=== PATIENT | female | born 1940 | race Caucasian/White ===

== ENCOUNTER → 2017-01-03 | Outpatient (CLI) | payer MEDICARE, MEDICAID ==
[~2017-01-03] MED LIST: ALEN70TA47 PO; BACL10TA PO; CARV12.53 PO; CLON0.5T3 PO; ESTR0.3T PO; EZET1TAB36 PO; GLIM1TAB PO; LEVO137T6 PO; LOSA-35 PO; MELO-195 PO; MEMA10TA PO; MTF500T PO; NF-ESOM40C PO; POTA10CA43 PO; QUET100T PO; SERT100T PO; SOLI5TAB4 PO; TRAM50TA2 PO; VITORIN
--- NOTE | 2017-01-03 14:25 | Diagnostic Imaging Report ---
EXAMINATION: Upper and lower extremity pressure measurements of ankle/brachial index and pulse volume recording at the ankle. INDICATION: Diabetes FINDINGS: The ankle/brachial index on the right side is 1.1, (1.1 PT, and 0.9 DP) and on the left is 1.1 (1.1 PT, and 0.9 DP). Pulse volume recording waveforms demonstrates minimal dampening of the waveforms more on the left side. IMPRESSION: Normal FRANCESCA, bilaterally. Dictated by: Dictated on workstation # [id number]
== END ==
LOC: RAD 08:55
PROVIDERS: ATTEND Internal Medicine
DX: E11.9 Type 2 diabetes mellitus without complications (principal); R09.89 Other specified symptoms and signs involving the circulatory and respiratory systems
CPT/HCPCS: 93922

== ENCOUNTER 2019-01-25 12:47 | Emergency (ER) | payer MEDICARE, MEDICAID ==
[~2019-01-25] VITALS: Ht 157.5 cm; Wt 96.2 kg
--- NOTE | 2019-01-25 13:06 | ED Fall/Injury ---
General Stated Complaint: FALL Source: patient, EMS Exam Limitations: clinical condition (dementia) History of Present Illness Date Seen by Provider: Jan 25, 2019 Time Seen by Provider: 13:01 Initial Comments This 78-year-old white female presents after a fall that occurred at home shortly prior to presentation to the emergency department. The patient related that she had opened her refrigerator door when she lost her balance and fell backwards striking her occiput. Patient denied loss of consciousness with the fall. The patient denied neck pain, paresthesias, or weakness in her extremities. The patient denies other injury in her accident other than a contusion to both shoulders. The patient suffers from dementia and is on Namenda. The patient is complaining of dysuria and has been treated recently for urinary tract infection. She believes that the urinary tract infection is still present. Allergies and Home Medications Allergies Coded Allergies: Sulfa (Sulfonamide Antibiotics) (Unverified Allergy, Unknown, 09/27/13) levofloxacin (Unverified Allergy, Unknown, 09/27/13) Home Medications Alendronate Sodium 70 Mg Tablet, 70 MG PO WEEKLY ON SUNDAY, (Reported) Carvedilol 12.5 Mg Tablet, 12.5 MG PO BID, (Reported) Clonazepam 0.5 Mg Tablet, 0.5 MG PO TID, (Reported) Esomeprazole Mag Trihydrate 40 Mg Capsule.dr, 40 MG PO DAILY, (Reported) Estrogens Conjugated 0.3 Mg Tab, 0.3 MG PO DAILY, (Reported) Ezetimibe/Simvastatin 1 Tab Tablet, 1 TAB PO DAILY@1700, (Reported) Fluconazole 150 Mg Tablet, 150 MG PO ONCE Prescribed by: GLENN MONZON MD on 01/25/191548 Glimepiride 1 Mg Tablet, 1 MG PO DAILY, (Reported) Levothyroxine Sodium 137 Mcg Tablet, 137 MCG PO DAILY, (Reported) Meloxicam 15 Mg Tablet, 15 MG PO DAILY, (Reported) Memantine Hcl 10 Mg Tablet, 20 MG PO BID, (Reported) Nitrofurantoin Monohyd/M-Cryst 100 Mg Capsule, 1 TAB PO BID PRN Prescribed by: GLENN MONZON MD on 01/25/191548 Quetiapine Fumarate 100 Mg Tablet, 150 MG PO HS, (Reported) Sertraline Hcl 100 Mg Tablet, 300 MG PO DAILY, (Reported) Tramadol HCl 50 Mg Tablet, 100 MG PO Q6H PRN for PAIN-MODERATE Prescribed by: GLENN MONZON MD on 01/25/19 6179 Tramadol Hcl 50 Mg Tablet, 50 MG PO BID, (Reported) Patient Home Medication List Home Medication List Reviewed: Yes Review of Systems Review of Systems Constitutional: No chills, No dizziness, No fever, No weakness Eyes: Denies Blurred Vision, Denies Photophobia Ears, Nose, Mouth, Throat: denies ear pain, denies ear discharge Respiratory: No cough, No short of breath Cardiovascular: No chest pain, No palpitations Gastrointestinal: No abdominal pain, No diarrhea, No nausea, No vomiting Genitourinary: no symptoms reported Musculoskeletal: see HPI, joint pain (left shoulder) Skin: no symptoms reported, other (no abrasions or lacerations) Psychiatric/Neurological: No Symptoms Reported, Other (dementia) Past Rpgabjh-Gpnxcm-Nnmlfh Hx Past Med/Social Hx: Reviewed Nursing Past Med/Soc Hx Patient Social History Recent Foreign Travel: No Contact w/Someone Who Travel: No Immunizations Up To Date Date of Influenza Vaccine: May 11, 2011 Past Medical History Reproductive Disorders: No Abdominal Hernia Family Medical History Patient reports no known family medical history. Physical Exam Vital Signs Vital Signs - First Documented 01/25/19 01/25/19 12:49 14:49 Temp 100.2 Pulse 85 Resp 10 B/P (MAP) 131/76 (94) Pulse Ox 94 O2 Delivery Room Air O2 Flow Rate 2.00 Capillary Refill : Height, Weight, BMI Height: 5'2.00" Weight: 240lbs. 9.0oz. [id number]; BMI Method: General Appearance: WD/WN, no apparent distress HEENT: normal ENT inspection, other (there is no tenderness to palpation of the caput. The facial structures are stable and nontender.) Neck: non-tender, full range of motion, supple, normal inspection Cardiovascular: regular rate, rhythm, no murmur Respiratory: lungs clear, normal breath sounds Gastrointestinal: normal bowel sounds, non tender, soft Back: normal inspection, no CVA tenderness, no vertebral tenderness Extremities: other (there is tenderness to palpation of both shoulders. There is pain with active motion of both shoulders.) Neurologic/Psychiatric: no motor/sensory deficits, alert, normal mood/affect Skin: normal color, warm/dry; No ecchymosis; other (no abrasions) Diana Coma Score Best Eye Response: (4) Open Spontaneously Best Verbal Response: (5) Oriented Best Motor Response: (6) Obeys Commands Diana Total: 15 Progress/Results/Core Measures Results/Orders Lab Results Laboratory Tests Test 01/25/19 12:58 01/25/19 13:06 Range/Units White Blood Count 6.0 4.3-11.0 10^3/uL Red Blood Count 4.18 L 4.35-5.85 10^6/uL Hemoglobin 11.8 11.5-16.0 G/DL Hematocrit 36 35-52 % Mean Corpuscular Volume 85 80-99 FL Mean Corpuscular Hemoglobin 28 25-34 PG Mean Corpuscular Hemoglobin Concent 33 32-36 G/DL Red Cell Distribution Width 13.5 10.0-14.5 % Platelet Count 225 130-400 10^3/uL Mean Platelet Volume 9.9 7.4-10.4 FL Neutrophils (%) (Auto) 75 42-75 % Lymphocytes (%) (Auto) 14 12-44 % Monocytes (%) (Auto) 8 0-12 % Eosinophils (%) (Auto) 3 0-10 % Basophils (%) (Auto) 0 0-10 % Neutrophils # (Auto) 4.5 1.8-7.8 X 10^3 Lymphocytes # (Auto) 0.9 L 1.0-4.0 X 10^3 Monocytes # (Auto) 0.5 0.0-1.0 X 10^3 Eosinophils # (Auto) 0.2 0.0-0.3 10^3/uL Basophils # (Auto) 0.0 0.0-0.1 10^3/uL Sodium Level 131 L 135-145 MMOL/L Potassium Level 5.0 3.6-5.0 MMOL/L Chloride Level 91 L 98-107 MMOL/L Carbon Dioxide Level 24 21-32 MMOL/L Anion Gap 16 H 5-14 MMOL/L Blood Urea Nitrogen 32 H 7-18 MG/DL Creatinine 2.05 H 0.60-1.30 MG/DL Estimat Glomerular Filtration Rate 24 BUN/Creatinine Ratio 16 Glucose Level 72 70-105 MG/DL Lactic Acid Level 0.69 0.50-2.00 MMOL/L Calcium Level 9.7 8.5-10.1 MG/DL Corrected Calcium 9.4 8.5-10.1 MG/DL Total Bilirubin 0.4 0.1-1.0 MG/DL Aspartate Amino Transf (AST/SGOT) 43 H 5-34 U/L Alanine Aminotransferase (ALT/SGPT) 25 0-55 U/L Alkaline Phosphatase 98 40-136 U/L Total Protein 8.1 6.4-8.2 GM/DL Albumin 4.4 3.2-4.5 GM/DL Urine Color YELLOW Urine Clarity CLEAR Urine pH 7 5-9 Urine Specific [place] 1.010 L 1.016-1.022 Urine Protein NEGATIVE NEGATIVE Urine Glucose (UA) NEGATIVE NEGATIVE Urine Ketones NEGATIVE NEGATIVE Urine Nitrite NEGATIVE NEGATIVE Urine Bilirubin NEGATIVE NEGATIVE Urine Urobilinogen NORMAL NORMAL MG/DL Urine Leukocyte Esterase 1+ H NEGATIVE Urine RBC (Auto) NEGATIVE NEGATIVE Urine RBC NONE /HPF Urine WBC 5-10 H /HPF Urine Squamous Epithelial Cells 0-2 /HPF Urine Crystals NONE /LPF Urine Bacteria TRACE /HPF Urine Casts NONE /LPF Urine Mucus NEGATIVE /LPF Urine Culture Indicated CULTURE PENDING My Orders Orders - GLENN MONZON MD Ct Head/Cervical Spine Wo (01/25/19 12:58) Shoulder, Bilateral, 3 Views (01/25/19 13:11) Blood Culture (01/25/19 13:28) Urine Culture (01/25/19 13:28) Lactic Acid Analyzer (01/25/19 13:28) Cbc With Automated Diff (01/25/19 14:09) Comprehensive Metabolic Panel (01/25/19 14:09) Urinalysis (01/25/19 14:58) Tramadol Tablet (Ultram Tablet) (01/25/19 16:00) Nitrofurantoin Capsule,Macro (Macrobid C (01/25/19 16:00) Vital Signs/I&O 01/25/19 01/25/19 12:49 14:49 Temp 100.2 Pulse 85 Resp 10 B/P (MAP) 131/76 (94) Pulse Ox 94 94 O2 Delivery Room Air Nasal Cannula O2 Flow Rate 2.00 Progress Progress Note : Time: 15:32 Progress Note The patient's radiographic and laboratory evaluation demonstrated evidence of a urinary tract infection (1+ leukocytes). There was no evidence of acute trauma radiographically. Focused Exam Lactate Level 01/25/19 12:58: Lactic Acid Level 0.69 Lactic Acid Level Laboratory Tests Test 01/25/19 12:58 Lactic Acid Level 0.69 MMOL/L (0.50-2.00) Departure Impression Primary Impression: Fall Qualified Codes: W19.XXXA - Unspecified fall, initial encounter Additional Impressions: Closed head injury Qualified Codes: S09.90XA - Unspecified injury of head, initial encounter Urinary tract infection Qualified Codes: N30.00 - Acute cystitis without hematuria Disposition: HOME, SELF-CARE (ERASED) Condition: Improved Departure-Patient Inst. Decision time for Depature: 15:43 Referrals: PAULINE ARAMBULA MD (PCP/Family) Primary Care Physician Patient Instructions: Closed Head Injury Add. Discharge Instructions: Ultram, Macrobid, and Diflucan as prescribed. 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 Come back if any problem or question. Scripts Tramadol HCl (Ultram) 50 Mg Tablet 100 MG PO Q6H PRN for PAIN-MODERATE, #20 TAB Prov: GLENN MONZON MD 01/25/19 Fluconazole (Diflucan) 150 Mg Tablet 150 MG PO ONCE, #1 TAB Prov: GLENN MONZON MD 01/25/19 Nitrofurantoin Monohyd/M-Cryst (Macrobid 100 mg Capsule) 100 Mg Capsule 1 TAB PO BID PRN for 7 Days, CAP Prov: GLENN MONZON MD 01/25/19 GLENN MONZON MD Jan 25, 2019 13:06
--- NOTE | 2019-01-25 13:49 | Diagnostic Imaging Report ---
PROCEDURE: CT head and CT cervical spine without contrast. TECHNIQUE: Multiple contiguous axial images were obtained through the brain and cervical spine without the use of intravenous contrast. Sagittal and coronal reformations through the cervical spine were then performed. Auto Exposure Controls were utilized during the CT exam to meet ALARA standards for radiation dose reduction. INDICATION: Neck pain after fall. FINDINGS: There is mild prominence of the ventricles and sulci. Mild chronic microvascular ischemic disease. There is no hydrocephalus. There is no midline shift. There is no intracranial mass, hemorrhage or extra-axial fluid collection. Complete opacification of the right maxillary sinus with some hyperdense material. Remaining sinuses are clear. Mastoid air cells are clear. The alignment of the cervical spine is normal. The vertebral body heights are well-maintained. No fracture or traumatic subluxation. The odontoid is intact and the lateral mass is well aligned. Prevertebral soft tissues are within normal limits. There are mild degenerative changes. There is some post-facet arthropathy. IMPRESSION: 1. Atrophy and some chronic microvascular ischemic disease, however, no acute intracranial abnormality. 2. Complete opacification of the right maxillary sinus with some hyperdense material, possibly a fungal infection. Recommend clinical correlation. 3. Mild cervical spondylosis without acute fracture or or traumatic subluxation. Dictated by: Dictated on workstation # [id number]
[2019-01-25 14:15] LABS: BASOPHILS % (AUTO) 0 % (0-10); EOSINOPHILS # (AUTO) 0.2 10^3/uL (0.0-0.3); EOSINOPHILS % (AUTO) 3 % (0-10); HEMATOCRIT 36 % (35-52); HEMOGLOBIN 11.8 G/DL (11.5-16.0); LYMPHOCYTES # (AUTO) 0.9 X 10^3 (1.0-4.0); LYMPHOCYTES % (AUTO) 14 % (12-44); MEAN CORPUSCULAR HEMOGLOBIN 28 PG (25-34); MEAN CORPUSCULAR HGB CONC 33 G/DL (32-36); MEAN CORPUSCULAR VOLUME 85 FL (80-99); MEAN PLATELET VOLUME 9.9 FL (7.4-10.4); MONOCYTES # (AUTO) 0.5 X 10^3 (0.0-1.0); MONOCYTES % (AUTO) 8 % (0-12); NEUTROPHILS # (AUTO) 4.5 X 10^3 (1.8-7.8); NEUTROPHILS % (AUTO) 75 % (42-75); PLATELET COUNT 225 10^3/uL (130-400); RED CELL DISTRIBUTION WIDTH 13.5 % (10.0-14.5)
--- NOTE | 2019-01-25 14:18 | Diagnostic Imaging Report ---
Indication: Pain. Findings: Severe glenohumeral osteoarthritis bilaterally is present without fracture or dislocation. Impression: Severe bilateral shoulder arthritis, no acute finding apparent. Dictated by: Dictated on workstation # [id number]
[2019-01-25 14:29] LABS: ALBUMIN 4.4 GM/DL (3.2-4.5); BILIRUBIN,TOTAL 0.4 MG/DL (0.1-1.0); CALCIUM 9.7 MG/DL (8.5-10.1); CREATININE SERUM 2.05 MG/DL (0.60-1.30); TOTAL PROTEIN 8.1 GM/DL (6.4-8.2)
--- NOTE | 2019-01-25 14:49 | NUR ---
Pt's O2 sat dropped to 89 while sleeping. Pt placed on @ L NC. O2 97%.
[2019-01-25 15:23] LABS: BILIRUBIN,URINE NEGATIVE (NEGATIVE); COLOR,URINE YELLOW; GLUCOSE, URINE (UA) NEGATIVE (NEGATIVE); KETONES,URINE NEGATIVE (NEGATIVE); LEUKOCYTE ESTERASE ,URINE 1+ (NEGATIVE); NITRITE,URINE NEGATIVE (NEGATIVE); PH,URINE 7 (5-9); PROTEIN,URINE NEGATIVE (NEGATIVE); UROBILINOGEN,URINE NORMAL (NORMAL)
[2019-01-25 15:33] LABS: CLARITY,URINE CLEAR
[2019-01-25 15:34] LABS: BACTERIA,URINE TRACE /HPF; SQUAMOUS EPITHELIAL CELL,UR 0-2 /HPF
[2019-01-25] MEDS ORDERED: TRAM-42 PO (15:49)
[2019-01-25] MEDS ORDERED: NITR-65 PO (15:49)
[2019-01-25] MEDS ORDERED: FLUC150T PO (15:49)
[2019-01-25] MEDS ORDERED: NITROFURANTOIN 100 MG (MACROBID) CAPSULE PO ONE (16:00)
[2019-01-25 16:05] VITALS: BP 147/71
== END 2019-01-25 16:05 | disposition home or self-care (01) ==
LOC: EDUNIT# 12:47 → ER 12:48
DX: S09.90XA Unspecified injury of head, initial encounter (principal); N39.0 Urinary tract infection, site not specified; F03.90 Unspecified dementia, unspecified severity, without behavioral disturbance, psychotic disturbance, mood disturbance, and anxiety; R40.2142 Coma scale, eyes open, spontaneous, at arrival to emergency department; R40.2252 Coma scale, best verbal response, oriented, at arrival to emergency department; R40.2362 Coma scale, best motor response, obeys commands, at arrival to emergency department; Z88.2 Allergy status to sulfonamides; Z88.1 Allergy status to other antibiotic agents; W01.198A Fall on same level from slipping, tripping and stumbling with subsequent striking against other object, initial encounter; Y92.009 Unspecified place in unspecified non-institutional (private) residence as the place of occurrence of the external cause
CPT/HCPCS: 36415; 70450; 72125; 80053; 81000; 83605; 85025; 87040; 87077; 87088; 87186

== ENCOUNTER → 2019-02-21 | Outpatient (CLI) | payer MEDICARE, MEDICAID ==
[~2019-02-21] MED LIST changes: +FLUC150T PO; +NITR-65 PO; +TRAM-42 PO
--- NOTE | 2019-02-21 14:11 | Diagnostic Imaging Report ---
INDICATION: Sinusitis. TIME OF EXAM: 1:34 p.m. FINDINGS: The right maxillary sinus appears to be opacified. The left maxillary sinus is well aerated and without evidence of air-fluid level. No intraorbital gas is seen. The frontal sinus, ethmoid air cells, and sphenoid sinus appear to be clear. IMPRESSION: Right maxillary sinus opacification. Dictated by: Dictated on workstation # [id number]
== END ==
LOC: RAD 13:14
PROVIDERS: ATTEND Internal Medicine
DX: J32.9 Chronic sinusitis, unspecified (principal)
CPT/HCPCS: 70220

== ENCOUNTER → 2019-08-12 | Outpatient (CLI) | payer MEDICARE, MEDICAID ==
--- NOTE | 2019-08-12 15:11 | Diagnostic Imaging Report ---
EXAMINATION: Bilateral shoulders at 2:45 p.m. INDICATION: Shoulder pain. AP and transaxillary views of both shoulder joints were obtained. FINDINGS: There is no fracture, dislocation, or acute bony abnormality evident. As noted on the prior exam of 01/25/2019, there is fairly severe degenerative disease involving the glenohumeral joints bilaterally, particularly on the right. These degenerative changes do not appear to have progressed. There is moderate degenerative disease of the acromioclavicular joint on the left. This finding is similar to the prior exam as well. Also, as noted on the prior exam, there has been resection of the distal right clavicle. There is a prominent bony excrescence along the inferior aspect of the acromion on the right. This could narrow the outlet for the supraspinatus muscle. There is a similar finding associated with the left acromion. The soft tissues are unremarkable. IMPRESSION: 1. There is no evidence of an acute bony abnormality. 2. The degenerative disease involving the shoulder joints seen previously does not appear to have progressed significantly. 3. If there is clinical concern regarding an injury to the rotator cuff or labrum, then MRI would be recommended for further evaluation. Dictated by: Dictated on workstation # [id number]
== END ==
LOC: ORTHO 14:23
PROVIDERS: ATTEND Orthopaedic Surgery
DX: M75.122 Complete rotator cuff tear or rupture of left shoulder, not specified as traumatic (principal); M75.121 Complete rotator cuff tear or rupture of right shoulder, not specified as traumatic; M19.012 Primary osteoarthritis, left shoulder; M19.011 Primary osteoarthritis, right shoulder

== ENCOUNTER → 2019-10-06 | Outpatient (CLI) | payer MEDICARE, MEDICAID | LOC: ORTHO 10:36 | PROVIDERS: ATTEND Orthopaedic Surgery | DX: M75.122 Complete rotator cuff tear or rupture of left shoulder, not specified as traumatic (principal); M75.121 Complete rotator cuff tear or rupture of right shoulder, not specified as traumatic; M19.012 Primary osteoarthritis, left shoulder; M19.011 Primary osteoarthritis, right shoulder ==

== ENCOUNTER → 2019-11-08 | Outpatient (CLI) | payer MEDICARE, MEDICAID ==
--- NOTE | 2019-11-08 13:45 | Diagnostic Imaging Report ---
EXAMINATION: Right hip unilateral 2 or 3 views (w/pelvis when done) HISTORY: RIGHT HIP PAIN COMPARISON: None available. FINDINGS: No acute fracture is seen. Alignment is normal. There is moderate right and mild left hip joint osteoarthritis. There is moderate degenerative disc disease in the lumbar spine. IMPRESSION: 1. Moderate right and mild left hip joint osteoarthritis. 2. No acute fracture is seen. Dictated by: Dictated on workstation # [id number]
== END ==
LOC: RAD 11:42
PROVIDERS: ATTEND Orthopaedic Surgery
DX: M16.0 Bilateral primary osteoarthritis of hip (principal)

== ENCOUNTER → 2019-11-12 | Outpatient (CLI) | payer MEDICARE, MEDICAID | LOC: ORTHO 10:48 | PROVIDERS: ATTEND Orthopaedic Surgery | DX: M16.0 Bilateral primary osteoarthritis of hip (principal); M25.511 Pain in right shoulder ==

== ENCOUNTER → 2020-01-07 | Outpatient (CLI) | payer MEDICARE, MEDICAID | LOC: ORTHO 10:51 | PROVIDERS: ATTEND Orthopaedic Surgery | DX: M12.811 Other specific arthropathies, not elsewhere classified, right shoulder (principal) ==

== ENCOUNTER 2021-01-25 07:46 | Observation (INO) | payer MEDICARE, MEDICAID ==
[~2021-01-25] VITALS: Ht 157 cm; Wt 86.5 kg
[2021-01-25 07:54] VITALS: BP 152/101
[2021-01-25] MEDS ORDERED: DEXTROSE 50% 50 ML (IMS) SYR ONE (08:01)
[2021-01-25 08:09] LABS: BASOPHILS % (AUTO) 0 % (0-10); EOSINOPHILS # (AUTO) 0.1 10^3/uL (0.0-0.3); EOSINOPHILS % (AUTO) 1 % (0-10); HEMATOCRIT 34 % (35-52); HEMOGLOBIN 10.7 g/dL (11.5-16.0); LYMPHOCYTES # (AUTO) 0.9 10^3/uL (1.0-4.0); LYMPHOCYTES % (AUTO) 13 % (12-44); MEAN CORPUSCULAR HEMOGLOBIN 29 pg (25-34); MEAN CORPUSCULAR HGB CONC 32 g/dL (32-36); MEAN CORPUSCULAR VOLUME 92 fL (80-99); MEAN PLATELET VOLUME 9.2 fL (9.0-12.2); MONOCYTES # (AUTO) 0.5 10^3/uL (0.0-1.0); MONOCYTES % (AUTO) 6 % (0-12); NEUTROPHILS # (AUTO) 5.8 10^3/uL (1.8-7.8); NEUTROPHILS % (AUTO) 79 % (42-75); PLATELET COUNT 225 10^3/uL (130-400); WHITE BLOOD COUNT 7.3 10^3/uL (4.3-11.0)
--- NOTE | 2021-01-25 08:09 | ED Neurological Problem ---
General Chief Complaint: Neuro-Stroke Like Symptoms Stated Complaint: POSSIBLE STROKE LIKE SYMPTOMS, HTN Source: patient, EMS Exam Limitations: clinical condition History of Present Illness Date Seen by Provider: Jan 25, 2021 Time Seen by Provider: 07:46 Initial Comments Patient to the ER by EMS from home with chief complaint of altered mental status. Family checked on her noticed yesterday she was having some right-sided facial droop that resolved spontaneously. They also found her today to be shaking a lot which the patient says she normally shakes. She had some altered mental status according to family and EMS. They noted her blood sugar to be 65 and so they gave her a 15 g tube of oral glucose which she said improved her symptoms. Patient is denying any chest pain shortness of air cough fevers chills nausea or vomiting. She is not having any dysuria. She is however endorsing some low back pain and right shoulder pain which is chronic and she uses tramadol and Tylenol for. She has had a dose today as well she says she ate oatmeal for breakfast. She says she had a fall yesterday and struck her head. She denies being on a blood thinner. She is not on insulin. She is a patient of Dr. George'qasim with known diabetes and denies any heart history. She has a skin tear laceration from blunt trauma to her right rivera from her fall yesterday which she has been doctoring with triple antibiotic ointment and gauze. Allergies and Home Medications Allergies Coded Allergies: Sulfa (Sulfonamide Antibiotics) (Unverified Allergy, Unknown, 09/27/13) levofloxacin (Unverified Allergy, Unknown, 09/27/13) Home Medications Acetaminophen 650 Mg Tablet.er, 650 MG PO QID PRN for PAIN-MILD (1-4), (Reported) ALTERNATES TYLENOL AND TRAMADOL Last Action: Held Acetaminophen/Diphenhydramine 1 Each Tablet, 2 EACH PO HS, (Reported) Last Action: Held Allopurinol 100 Mg Tablet, 100 MG PO DAILY, (Reported) Last Action: Continued Aspirin 81 Mg Tablet.dr, 81 MG PO DAILY, (Reported) Last Action: Continued Atorvastatin Calcium 10 Mg Tablet, 10 MG PO DAILY, (Reported) Last Action: Continued Baclofen 10 Mg Tablet, 10 MG PO 0800,1400,1600,2200, (Reported) Last Action: Continued Bumetanide 2 Mg Tablet, 2 MG PO DAILY, (Reported) Last Action: Held Carvedilol 6.25 Mg Tablet, 6.25 MG PO BID, (Reported) Last Action: Continued Cephalexin 500 Mg Capsule, 500 MG PO QID, (Reported) FILLED 01-19-2021 #40/10 DAY SUPPLY Last Action: Held Cholecalciferol (Vitamin D3) 50 Mcg Capsule, 50 MCG PO DAILY, (Reported) Last Action: Held Clonazepam 1 Mg Tablet, 1 MG PO 0800,1400,2200, (Reported) Last Action: Continued Donepezil HCl 10 Mg Tablet, 10 MG PO HS, (Reported) Last Action: Continued Ezetimibe 10 Mg Tablet, 10 MG PO DAILY, (Reported) Last Action: Continued Fluconazole 150 Mg Tablet, 150 MG PO DAILY, (Reported) FILLED 01-19-2021 #14/14 DAY SUPPLY Last Action: Continued Glimepiride 1 Mg Tablet, 1 MG PO 1800 W/MEAL, (Reported) Last Action: Held Glimepiride 1 Mg Tablet, 2 MG PO DAILY, (Reported) TAKES 2 (1MG) TABS Last Action: Held Levothyroxine Sodium 175 Mcg Tablet, 175 MCG PO DAILY, (Reported) Last Action: Converted Linagliptin 5 Mg Tablet, 5 MG PO DAILY, (Reported) Last Action: Continued Melatonin 3 Mg Tablet, 3 MG PO HS, (Reported) Last Action: Continued Memantine HCl 10 Mg Tablet, 10 MG PO 0800,1700, (Reported) Last Action: Continued Pantoprazole Sodium 40 Mg Tablet.dr, 40 MG PO DAILY, (Reported) Last Action: Continued Pilocarpine 5 Mg Tab, 5 MG PO QID, (Reported) Last Action: Converted Quetiapine Fumarate 50 Mg Tablet, 150 MG PO HS, (Reported) TAKES 3 (50MG) TABS Last Action: Converted Sertraline HCl 100 Mg Tablet, 200 MG PO DAILY, (Reported) TAKES 2 (100MG) TABS Last Action: Continued Simethicone 125 Mg Tab.chew, 125-250 MG PO TID PRN for GAS, (Reported) Last Action: Held Tramadol HCl 50 Mg Tablet, 50 MG PO QID, (Reported) ALTERNATES TYLENOL AND TRAMADOL Last Action: Continued Vit A/Vit C/Vit E/Zinc/Copper 1 Each Tablet, 1 EACH PO DAILY, (Reported) Last Action: Held Vitamin B Complex/Folic Acid 50 Mcg Tablet, 50 MCG PO DAILY, (Reported) Last Action: Held Patient Home Medication List Home Medication List Reviewed: Yes Review of Systems Review of Systems Constitutional: No chills, No fever Eyes: Denies Blindness, Denies Blurred Vision, Denies Drainage Ears, Nose, Mouth, Throat: denies ear pain, denies ear discharge Respiratory: No cough, No short of breath Cardiovascular: No chest pain, No edema Gastrointestinal: No abdominal pain, No constipation, No diarrhea Genitourinary: No dysuria, No pain : No Musculoskeletal: see HPI (Chronic back pain), back pain; No joint pain Psychiatric/Neurological: See HPI, Other (Laceration right anterior rivera) Endocrine: See HPI All Other Systems Reviewed Negative Unless Noted: Yes Past Cpgfjgb-Cekdti-Ldnmyd Hx Patient Social History Tobacco Use?: No Use of E-Cig and/or Vaping dev: No Substance use?: No Past Medical History Surgeries: Yes (HYSTERECTOMY, ROTATOR CUFF, CARPEL TUNNEL, TONSILS) Respiratory: Yes (wears cpap, O2 at night) Cardiac: Yes Neurological: Yes Reproductive Disorders: No Genitourinary: No Gastrointestinal: Yes Abdominal Hernia Musculoskeletal: Yes Endocrine: Yes Diabetes, Non-Insulin dep Psychosocial: Yes (BIPOLAR) Anxiety, Depression Integumentary: No Blood Disorders: No Family Medical History Patient reports no known family medical history. Physical Exam Vital Signs Vital Signs - First Documented 01/25/21 01/25/21 07:54 08:16 Temp 36.2 Pulse 86 Resp 20 B/P (MAP) 152/101 Pulse Ox 91 O2 Delivery Room Air Capillary Refill : Height, Weight, BMI Height: 5'2.00" Weight: 212lbs. 9.0oz. 96.282654ai; BMI Method:Stated General Appearance: WD/WN, moderate distress HEENT: PERRL/EOMI, pharynx normal Neck: full range of motion, normal inspection Respiratory: lungs clear, normal breath sounds, no respiratory distress, no accessory muscle use Cardiovascular: normal peripheral pulses, regular rate, rhythm (Mid 80s), no edema Peripheral Pulses: 2+ Radial Pulses (R), 2+ Radial Pulses (L) Gastrointestinal: normal bowel sounds, non tender, soft Extremities: normal range of motion, non-tender, normal inspection, normal capillary refill Neurologic/Psychiatric: no motor/sensory deficits, alert, other (Oriented to person and time but not place as she thinks she is in [email or web address]) [place] Nerves: normal hearing, normal speech, PERRL Coordination/Gait: normal finger to nose Motor/Sensory: no motor deficit, no sensory deficit, no pronator drift Skin: other (Jagged 10 cm irregular skin tear that does not look recent with a healing wound base and surrounding 2 cm of erythema but no induration or exudate over the right anterior lower leg.) Stroke NIH Stroke Scale Assessment Select: Initial Level of Consciousness: 0=Alert (0), Level of Consciousness- Questions: 0=Answers both month/age (0), LOC Commands: 0=Performs both tasks (0), Gaze: Normal (0), Visual Lowe: 0=No visual loss (0), Facial Movement (Facial Paresis): 0=Normal symmetrical mnt (0), Motor Function-Arms Right: 0=No drift (0), Motor Function-Arms Left: 0=No drift (0), Motor Function-Legs Right: 0=No drift (0), Motor Function-Legs Left: 0=No drift (0), Limb Ataxia: 0=Absent (0), Sensory: 0=Normal:no loss (0), Best Language: 0=No aphasia (0), Dysarthria: 0=Normal (0), Extinction & Inattention: 0=No abnormality (0), Total: 0 Stroke Thrombolytic Exclusion Age 18 or Over: Yes Acute intenal hemorrhage: No History of CVA: No Uncontrolled Coagulation Defec: No Intracranial Hemorrhage: No Severe Hypertension: No GI or Bleed: No Subarachnoid Hemorrhage: No Intracranial Neoplasm/Aneurysm: No Oral Anticoagulants: No Surgery or Trauma: No Puncture of Non-Compressible V: No Recent CPR: No Diabetic Hemorrhagic Retinopat: No Organ Biopsy: No Recent Obstetric Delivery: No Glucose: Yes (64) Significant Hepatic Dysfunctio: No NIH Stoke Scale >22: No Bacterial Endocarditis: No Pericarditis: No Improving Symptoms: Yes Platelets: No TPA Contraindication: No IV - TPa Received IV - TPa Procedure Performed?: No (Outside the window and improving symptoms with glucose) Progress/Results/Core Measures Results/Orders Lab Results Laboratory Tests Test 01/25/21 07:22 01/25/21 07:50 01/25/21 07:54 01/25/21 08:30 Range/Units White Blood Count 7.3 4.3-11.0 10^3/uL Red Blood Count 3.70 L 3.80-5.11 10^6/uL Hemoglobin 10.7 L 11.5-16.0 g/dL Hematocrit 34 L 35-52 % Mean Corpuscular Volume 92 80-99 fL Mean Corpuscular Hemoglobin 29 25-34 pg Mean Corpuscular Hemoglobin Concent 32 32-36 g/dL Red Cell Distribution Width 13.9 10.0-14.5 % Platelet Count 225 130-400 10^3/uL Mean Platelet Volume 9.2 9.0-12.2 fL Immature Granulocyte % (Auto) 1 % Neutrophils (%) (Auto) 79 H 42-75 % Lymphocytes (%) (Auto) 13 12-44 % Monocytes (%) (Auto) 6 0-12 % Eosinophils (%) (Auto) 1 0-10 % Basophils (%) (Auto) 0 0-10 % Neutrophils # (Auto) 5.8 1.8-7.8 10^3/uL Lymphocytes # (Auto) 0.9 L 1.0-4.0 10^3/uL Monocytes # (Auto) 0.5 0.0-1.0 10^3/uL Eosinophils # (Auto) 0.1 0.0-0.3 10^3/uL Basophils # (Auto) 0.0 0.0-0.1 10^3/uL Immature Granulocyte # (Auto) 0.1 0.0-0.1 10^3/uL Sodium Level 138 135-145 MMOL/L Potassium Level 4.3 3.6-5.0 MMOL/L Chloride Level 98 98-107 MMOL/L Carbon Dioxide Level 25 21-32 MMOL/L Anion Gap 15 H 5-14 MMOL/L Blood Urea Nitrogen 45 H 7-18 MG/DL Creatinine 2.25 H 0.60-1.30 MG/DL Estimat Glomerular Filtration Rate 21 BUN/Creatinine Ratio 20 Glucose Level 98 70-105 MG/DL Calcium Level 9.2 8.5-10.1 MG/DL Corrected Calcium 9.1 8.5-10.1 MG/DL Total Bilirubin 0.3 0.1-1.0 MG/DL Aspartate Amino Transf (AST/SGOT) 31 5-34 U/L Alanine Aminotransferase (ALT/SGPT) 18 0-55 U/L Alkaline Phosphatase 64 40-136 U/L C-Reactive Protein High Sensitivity 3.49 H 0.00-0.50 MG/DL Total Protein 7.6 6.4-8.2 GM/DL Albumin 4.1 3.2-4.5 GM/DL Serum Alcohol < 10 <10 MG/DL Glucometer 77 70-110 MG/DL Urine Color YELLOW Urine Clarity CLEAR Urine pH 5.5 5-9 Urine Specific [place] 1.010 L 1.016-1.022 Urine Protein NEGATIVE NEGATIVE Urine Glucose (UA) NEGATIVE NEGATIVE Urine Ketones NEGATIVE NEGATIVE Urine Nitrite NEGATIVE NEGATIVE Urine Bilirubin NEGATIVE NEGATIVE Urine Urobilinogen 0.2 < = 1.0 MG/DL Urine Leukocyte Esterase NEGATIVE NEGATIVE Urine RBC (Auto) NEGATIVE NEGATIVE Urine RBC NONE /HPF Urine WBC NONE /HPF Urine Squamous Epithelial Cells NONE /HPF Urine Crystals NONE /LPF Urine Bacteria NEGATIVE /HPF Urine Casts NONE /LPF Urine Mucus NEGATIVE /LPF Urine Culture Indicated NO Test 01/25/21 08:41 01/25/21 11:27 Range/Units Urine Opiates Screen NEGATIVE NEGATIVE Urine Oxycodone Screen NEGATIVE NEGATIVE Urine Methadone Screen NEGATIVE NEGATIVE Urine Propoxyphene Screen NEGATIVE NEGATIVE Urine Barbiturates Screen NEGATIVE NEGATIVE Ur Tricyclic Antidepressants Screen POSITIVE H NEGATIVE Urine Phencyclidine Screen NEGATIVE NEGATIVE Urine Amphetamines Screen NEGATIVE NEGATIVE Urine Methamphetamines Screen NEGATIVE NEGATIVE Urine Benzodiazepines Screen NEGATIVE NEGATIVE Urine Cocaine Screen NEGATIVE NEGATIVE Urine Cannabinoids Screen NEGATIVE NEGATIVE Glucometer 57 *L 70-110 MG/DL My Orders Orders - SHIVNAI MULLER Accucheck Stat ONCE (01/25/21 08:01) Ct Head/Cervical Spine Wo (01/25/21 08:01) Ed Iv/Invasive Line Start (01/25/21 08:01) D5 Ns 1000 Ml Iv Solution (Dextrose 5%/0 (01/25/21 08:15) Cbc With Automated Diff (01/25/21 08:01) Comprehensive Metabolic Panel (01/25/21 08:01) Hs C Reactive Protein (01/25/21 08:01) Ua Culture If Indicated (01/25/21 08:01) Catheter(Urinary) Insert & Ass 03,15 (01/25/21 08:01) Chest 1 View, Ap/Pa Only (01/25/21 08:01) D50w (Emergency) Syringe (Dextrose 50% 5 (01/25/21 08:01) Alcohol (01/25/21 08:29) Drug Screen Stat (Urine) (01/25/21 08:29) Ekg Tracing (01/25/21 07:55) D5 Ns 1000 Ml Iv Solution (Dextrose 5%/0 (01/25/21 12:06) D5 Ns 1000 Ml Iv Solution (Dextrose 5%/0 (01/25/21 12:15) Medications Given in ED Current Medications Medications Dose Ordered Sig/Grant Route Start Time Stop Time Status Last Admin Dose Admin Dextrose/Sodium Chloride 1,000 ml @ 0 mls/hr Q0M ONCE IV 01/25/21 08:15 01/25/21 08:16 DC 01/25/21 08:09 999 MLS/HR Vital Signs/I&O 01/25/21 01/25/21 07:54 08:16 Temp 36.2 Pulse 86 86 Resp 20 18 B/P (MAP) 152/101 152/101 (118) Pulse Ox 91 97 O2 Delivery Room Air Progress Progress Note : Time: 12:57 Progress Note Patient was given a bag of D5 followed by D5 at 100 an hour and will fed her some peanut butter and crackers as well as a meal to get her sugars to stay up. Plan to admit her for wound infection on Keflex and IV fluids. Initial ECG Impression Date: Jan 25, 2021 Initial ECG Impression Time: 07:55 Initial ECG Rate: 86 Initial ECG Rhythm: Normal Sinus Initial ECG Intervals: QT (494) Initial ECG Impression: Normal Comment Tremor artifact with a normal sinus rhythm in the mid 80s. Borderline prolonged QTC. Diagnostic Imaging Diagonstic Imaging: Xray Plain Films/CT/US/NM/MRI: chest Comments [facility]. [place], [place] NAME: TEEMICHAEL L MED REC#: [id number] PT STATUS: REG ER : 1940 PHYSICIAN: SHIVANI MULLER MD ADMIT DATE: 01/25/21/ER Signed Date of Exam:01/25/21 CHEST 1 VIEW, AP/PA ONLY EXAMINATION: Chest 1 view HISTORY: weak ams COMPARISON: 09/27/2013 FINDINGS: Heart size is upper limits of normal. Pulmonary vasculature are normal. Mild interstitial opacities lung bases. No pleural effusion or pneumothorax. Degenerative changes of the thoracic spine. Osseous structures are otherwise intact. Calcifications of the aorta. IMPRESSION: 1. Mild interstitial opacities in the lung bases which could represent atelectasis, pulmonary edema, or atypical infection. Dictated by: Dictated on workstation # [id number] Dict: 01/25/21 0951 Trans: 01/25/21 1004 [facility] [id number] Interpreted by: MARTHA MORELAND DO Electronically signed by: MARTHA MORELAND DO 01/25/21 1004 Reviewed: Reviewed by Ok Diagonstic Imaging: CT Plain Films/CT/US/NM/MRI: c-spine, head Comments [facility] [place] NAME: MICHAEL OLIVEIRA [facility] REC#: [id number] PT STATUS: REG ER : 1940 PHYSICIAN: SHIVANI MULLER MD ADMIT DATE: 01/25/21/ER Draft Date of Exam:01/25/21 CT HEAD/CERVICAL SPINE WO PROCEDURE: CT head and CT cervical spine without contrast. TECHNIQUE: Multiple contiguous axial images were obtained through the brain and cervical spine without the use of intravenous contrast. Sagittal and coronal reformations through the cervical spine were then performed. Auto Exposure Controls were utilized during the CT exam to meet ALARA standards for radiation dose reduction. INDICATION: Fall. Trauma. COMPARISON: 01/25/2019. FINDINGS: CT HEAD: The ventricles and cortical sulci are diffusely prominent, compatible with age-related volume loss. There are confluent areas of abnormal, low attenuation in the periventricular white matter. This is consistent with chronic small vessel ischemic changes. There is no midline shift or mass-effect. No acute intra-axial hemorrhage is seen. There are no abnormal areas of increased or decreased density to suggest acute hemorrhage or edema. No extra-axial masses or collections are present. The bony calvarium is intact. The visualized paranasal sinuses again show complete opacification of the right maxillary sinus as well as the right anterior ethmoid air cells. There is also partial opacification of the right frontal sinus. The mastoid air cells are clear. CT CERVICAL SPINE: Static alignment of the cervical spine is maintained. There is no evidence of jumped facets. Vertebral body heights are preserved. There is no acute fracture. No bony fragments are seen within the spinal canal. There are mild multilevel degenerative changes consisting of intervertebral disc height loss with anterior and posterior disc/osteophyte complex formations as well as multilevel facet arthropathy. Pre and paravertebral soft tissue structures are unremarkable. Note is made of calcified carotid atherosclerosis. Included portions of the lung apices are clear. IMPRESSION: 1. No acute intracranial abnormality. No CT evidence of mass, acute infarct, or intracranial hemorrhage. 2. Chronic small vessel ischemic changes in the deep white matter. 3. No acute fracture or dislocation in the cervical spine. Dictated on workstation # [id number] Dict: 01/25/21 0906 Trans: 01/25/2116 [id number] Interpreted by: SAMMY FIGUEROA MD Electronically signed by: Reviewed: Reviewed by Me Departure Communication (Admissions) Time/Spoke to Admitting Phy: 12:45 Discussed the case with Dr. Grullon and he agrees with admission on Keflex for wound infection, CAMPBELL on CKD and hyperglycemia to the floor. Impression Primary Impression: Hypoglycemia Additional Impressions: Wound infection Fall Qualified Codes: W19.XXXA - Unspecified fall, initial encounter Acute kidney injury superimposed on CKD Disposition: ADMITTED INPATIENT Condition: Stable Admissions Decision to Admit Reason: Admit from ER (General) Decision to Admit/Date: Jan 25, 2021 Time/Decision to Admit Time: 12:00 Departure-Patient Inst. Referrals: PAULINE GEORGE MD (PCP/Family) Primary Care Physician SHIVANI MULLER Jan 25, 2021 08:09
[2021-01-25 08:14] LABS: ALBUMIN 4.1 GM/DL (3.2-4.5); POTASSIUM 4.3 MMOL/L (3.6-5.0)
[2021-01-25 08:15] LABS: CALCIUM 9.2 MG/DL (8.5-10.1)
[2021-01-25] MEDS ORDERED: D5 NS 1000 ML IV SOLUTION 1,000 ML IV ONE ×2 (08:15→12:06)
[2021-01-25 08:17] LABS: TOTAL PROTEIN 7.6 GM/DL (6.4-8.2)
[2021-01-25 08:18] LABS: BILIRUBIN,TOTAL 0.3 MG/DL (0.1-1.0)
[2021-01-25 08:20] LABS: CREATININE SERUM 2.25 MG/DL (0.60-1.30)
[2021-01-25 08:46] LABS: BILIRUBIN,URINE NEGATIVE (NEGATIVE); CLARITY,URINE CLEAR; COLOR,URINE YELLOW; GLUCOSE, URINE (UA) NEGATIVE (NEGATIVE); KETONES,URINE NEGATIVE (NEGATIVE); LEUKOCYTE ESTERASE ,URINE NEGATIVE (NEGATIVE); NITRITE,URINE NEGATIVE (NEGATIVE); PH,URINE 5.5 (5-9); PROTEIN,URINE NEGATIVE (NEGATIVE)
[2021-01-25 08:51] LABS: BACTERIA,URINE NEGATIVE /HPF
[2021-01-25 09:01] LABS: AMPHETAMINE SCREEN, URINE NEGATIVE (NEGATIVE); BARBITURATE SCREEN URINE NEGATIVE (NEGATIVE); BENZODIAZEPINES SCREEN URINE NEGATIVE (NEGATIVE); CANNABINOID SCREEN, URINE NEGATIVE (NEGATIVE); COCAINE SCREEN URINE NEGATIVE (NEGATIVE); METHADONE STAT NEGATIVE (NEGATIVE); METHAMPHETAMINE SCREEN URINE S NEGATIVE (NEGATIVE); OPIATE SCREEN URINE NEGATIVE (NEGATIVE); OXYCODONE STAT NEGATIVE (NEGATIVE); PROPOXYPHENE STAT NEGATIVE (NEGATIVE); TRICYCLIC ANTIDEPRESSANTS SCRE POSITIVE (NEGATIVE)
--- NOTE | 2021-01-25 09:17 | Diagnostic Imaging Report ---
PROCEDURE: CT head and CT cervical spine without contrast. TECHNIQUE: Multiple contiguous axial images were obtained through the brain and cervical spine without the use of intravenous contrast. Sagittal and coronal reformations through the cervical spine were then performed. Auto Exposure Controls were utilized during the CT exam to meet ALARA standards for radiation dose reduction. INDICATION: Fall. Trauma. COMPARISON: 01/25/2019. FINDINGS: CT HEAD: The ventricles and cortical sulci are diffusely prominent, compatible with age-related volume loss. There are confluent areas of abnormal, low attenuation in the periventricular white matter. This is consistent with chronic small vessel ischemic changes. There is no midline shift or mass-effect. No acute intra-axial hemorrhage is seen. There are no abnormal areas of increased or decreased density to suggest acute hemorrhage or edema. No extra-axial masses or collections are present. The bony calvarium is intact. The visualized paranasal sinuses again show complete opacification of the right maxillary sinus as well as the right anterior ethmoid air cells. There is also partial opacification of the right frontal sinus. The mastoid air cells are clear. CT CERVICAL SPINE: Static alignment of the cervical spine is maintained. There is no evidence of jumped facets. Vertebral body heights are preserved. There is no acute fracture. No bony fragments are seen within the spinal canal. There are mild multilevel degenerative changes consisting of intervertebral disc height loss with anterior and posterior disc/osteophyte complex formations as well as multilevel facet arthropathy. Pre and paravertebral soft tissue structures are unremarkable. Note is made of calcified carotid atherosclerosis. Included portions of the lung apices are clear. IMPRESSION: 1. No acute intracranial abnormality. No CT evidence of mass, acute infarct, or intracranial hemorrhage. 2. Chronic small vessel ischemic changes in the deep white matter. 3. No acute fracture or dislocation in the cervical spine. Dictated by: Dictated on workstation # [id number]
--- NOTE | 2021-01-25 09:54 | Diagnostic Imaging Report ---
EXAMINATION: Chest 1 view HISTORY: weak ams COMPARISON: 09/27/2013 FINDINGS: Heart size is upper limits of normal. Pulmonary vasculature are normal. Mild interstitial opacities lung bases. No pleural effusion or pneumothorax. Degenerative changes of the thoracic spine. Osseous structures are otherwise intact. Calcifications of the aorta. IMPRESSION: 1. Mild interstitial opacities in the lung bases which could represent atelectasis, pulmonary edema, or atypical infection. Dictated by: Dictated on workstation # [id number]
[2021-01-25] MEDS ORDERED: POTASSIUM CHLORIDE INJ 20 MEQ in D5 NS 1000 ML IV SOLUTION 1,000 ML IV SCH (12:15)
[2021-01-25] MEDS ORDERED: D5 NS 1000 ML IV SOLUTION 1,000 ML IV SCH (12:15)
[2021-01-25] MEDS ORDERED: ONDANSETRON 4 MG/2 ML (SDV) Z0FRAN IVP PRN (14:15)
[2021-01-25] MEDS ORDERED: D5 NS W/KCL 20 MEQ/L 1,000 ML IV SCH (14:15)
[2021-01-25] MEDS ORDERED: PATIENT'S OWN MED (RX USE ONLY) TP PRN (14:15)
[2021-01-25] MEDS ORDERED: ACETAMINOPHEN 325 MG TABLET PO PRN (14:15)
[2021-01-25] MEDS ORDERED: ALLO100T PO (15:37)
[2021-01-25] MEDS ORDERED: CHOL200074 PO (15:37)
[2021-01-25] MEDS ORDERED: FLUC150T2 PO (15:37)
[2021-01-25] MEDS ORDERED: MELA3TAB39 PO (15:37)
[2021-01-25] MEDS ORDERED: CEPH500C PO (15:37)
[2021-01-25] MEDS ORDERED: MEMA10TA57 PO (15:37)
[2021-01-25] MEDS ORDERED: VITA50TA PO (15:37)
[2021-01-25] MEDS ORDERED: SIME125T59 PO (15:37)
[2021-01-25] MEDS ORDERED: NF-PILO5T PO (15:37)
[2021-01-25] MEDS ORDERED: LEVO175T5 PO (15:37)
[2021-01-25] MEDS ORDERED: CLON1TAB13 PO (15:37)
[2021-01-25] MEDS ORDERED: SERT-414 PO (15:37)
[2021-01-25] MEDS ORDERED: GLIM1TAB4 PO ×2 (15:37)
[2021-01-25] MEDS ORDERED: TRAM50TA3 PO (15:37)
[2021-01-25] MEDS ORDERED: QUET50TA22 PO (15:37)
[2021-01-25] MEDS ORDERED: CARV6.252 PO (15:37)
[2021-01-25] MEDS ORDERED: DONE10TA41 PO (15:37)
[2021-01-25] MEDS ORDERED: ACET-2840 PO (15:37)
[2021-01-25] MEDS ORDERED: BETA1TAB15 PO (15:37)
[2021-01-25] MEDS ORDERED: ATOR10TA66 PO (15:37)
[2021-01-25] MEDS ORDERED: [UNRECOGNIZED DRUG - CODE] PO (15:37)
[2021-01-25] MEDS ORDERED: PANT40TA52 PO (15:37)
[2021-01-25] MEDS ORDERED: ASPI-1238 PO (15:37)
[2021-01-25] MEDS ORDERED: EZET10TA49 PO (15:37)
[2021-01-25] MEDS ORDERED: BACL10TA PO (15:37)
[2021-01-25] MEDS ORDERED: BUME2TAB7 PO (15:37)
[2021-01-25] MEDS ORDERED: LINA5TAB PO (15:37)
[2021-01-25] MEDS ORDERED: ACET-3075 PO (15:42)
[2021-01-25 16:15] VITALS: BP 102/64
[2021-01-25] MEDS: inSUlin ASPART (NovoLOG) 1 UNIT/0.01 ML (CHARGE PER UNIT) SC SCH ×2 (16:30→20:33)
--- NOTE | 2021-01-25 16:42 | History & Physical-Hospitalist ---
LANIE KONG 01/25/21 1642: History of Present Illness HPI/Chief Complaint Franca Flowers is a 80y/o F who presents with AMS. History was given by daughter. The daughter reports pt had facial droop yesterday that resolved spontaneously. Then today the daughter was checking the video from the camera that is in the pt's house and had not seen her move by the camera in hours. Someone then went over to where the pt lives to check on her and found her sleeping in her chair which she never does according to the daughter. They also noticed that the pt's hands were shaking much more than her normal small tremor. Pt's blood glucose was then checked by the family and was low. They then gave her some oral glucose which caused the sxns to improve some but she was still not to baseline. At this point it was decided to have the pt brought into the emergency room. Has not had an episode like this in the past according to daughter. Pt does have a PMH of TIA. Laceration on right rivera from a fall she had last week when daughter was trying to load her into her van. Pt has a Daughter is unsure if pt has taken her meds today. Pt was evaluated for Parkinsons disease about 10 years ago and she was not diagnosed at that time daughter states. Source: family Date Seen 01/25/21 Time Seen by a Provider: 23:00 Attending Physician Jovany Reese MD PCP Elliot Arambula MD Referring Physician Date of Admission Jan 25, 2021 at 13:00 Home Medications & Allergies Home Medications Reviewed patient Home Medication Reconciliation performed by pharmacy medication reconciliations mathematical engineering technician and/or nursing. Patients Allergies have been reviewed. Allergies Allergies Coded Allergies Sulfa (Sulfonamide Antibiotics) (Unverified Allergy, Unknown, 09/27/13) levofloxacin (Unverified Allergy, Unknown, 09/27/13) Past Odgeypr-Kthaum-Dlxzxl Hx Patient Social History Tobacco Use?: No Smoking Status: Never a Smoker Use of E-Cig and/or Vaping dev: No Substance use?: No Alcohol Use?: No Pt feels they are or have been: No Immunizations Up To Date Date of Influenza Vaccine: May 11, 2011 First/Initial COVID19 Vaccinat: AUGUST 11 2020 Second COVID19 Vaccination Nicolas: SEPTEMBER 08, 2020 Tetanus Booster (TDap): Unknown Hepatitis A: No Hepatitis B: No Current Status status: No Advance Directives: No Communicates: Verbally Primary Language: Micronesian Preferred Spoken Language: Micronesian Is interpretation needed?: No Sensory deficits: Vision impairment Past Medical History Abdominal Hernia Diabetes, Non-Insulin dep Anxiety, Depression Blood Disorders: No Family Medical History Patient reports no known family medical history. Review of Systems Constitutional: No chills, No fever Respiratory: No cough, No short of breath Cardiovascular: No chest pain, No palpitations Gastrointestinal: No abdominal pain, No vomiting Musculoskeletal: back pain (chronic), joint pain (chronic b/l shoulder pain) Psychiatric/Neurological: Denies Headache; Tingling (occasional tingling in hands), Tremors Physical Exam Physical Exam Vital Signs Vital Signs - First Documented 01/25/21 01/25/21 07:54 08:16 Temp 36.2 Pulse 86 Resp 20 B/P (MAP) 152/101 Pulse Ox 91 O2 Delivery Room Air Capillary Refill : Less Than 3 Seconds Height, Weight, BMI Height: 5'2.00" Weight: 212lbs. 9.0oz. 96.553938lx; 35.09 BMI Method:Stated General Appearance: No Apparent Distress, WD/WN HEENT: Other (anisocoria L>R. EOMI) Respiratory: Lungs Clear, Normal Breath Sounds Cardiovascular: Regular Rate, Rhythm, No Murmur Gastrointestinal: Non Tender, Soft Extremity: Normal Inspection, No Pedal Edema Neurologic/Psychiatric: Alert, Oriented x3, Abnormal software quality assurance specialist II-XII (Unable to smile or puff out cheeks. ), Motor Weakness (b/l house parent strength 3/5), Other (Hand tremors that worsened w/ movement. Cogwheel rigidity present) Results Results/Procedures Labs Laboratory Tests 01/25/21 07:50 Patient resulted labs reviewed. Assessment/Plan Assessment and Plan Assessment hypoglycemia stroke-like sxns parkinson-like sxns HTN CKD hyperlipidemia lower lung atelectasis plan Start D5 NS w/ KCl. Stop glimepiride. Continue current monitoring. Will evaluate tomorrow and determine if ekg,echo, carotid US needed for further investigation of the stroke-like sxns. JOVANY REESE MD 01/26/21 0894: History of Present Illness Exam Limitations: clinical condition Time Seen by a Provider: 15:00 Past Phxogew-Nutbet-Vvwsmc Hx Past Medical History Dementia Renal Failure Diabetes, Non-Insulin dep Family Medical History Patient reports no known family medical history. No Pertinent Family Hx Physical Exam Physical Exam General Appearance: No Apparent Distress, Obese HEENT: Other (anisocoria L>R, nystagmus) Neck: Normal Inspection, Supple Respiratory: Lungs Clear, Normal Breath Sounds, No Respiratory Distress Cardiovascular: Regular Rate, Rhythm, No Murmur Gastrointestinal: Normal Bowel Sounds, Non Tender, Soft Extremity: Non Tender, Pedal Edema, Other (right leg lesion with bandage in place) Neurologic/Psychiatric: Alert, Oriented x3, Other (flat affect, mask like facies, dysmetria, intention tremor) Skin: Normal Color, Warm/Dry Lymphatic: No Adenopathy Results Results/Procedures Imaging: Reviewed Imaging Films, Reviewed Imaging Report Assessment/Plan Admission Diagnosis Stroke like symptoms Admission Status: Inpatient Order (span 2 midnights) Reason for Inpatient Admission: Further monitoring and evaluation Assessment and Plan Presented with stroke like symptoms, likely due to hypoglycemia, now resolved. Chronic symptoms consistent with Parkinsons. Continue to monitor symptoms and reevaluate as needed. Diagnosis/Problems Diagnosis/Problems (1) Stroke-like symptoms Status: Acute (2) Hypoglycemia due to type 2 diabetes mellitus Status: Acute (3) Parkinsonian features Status: Acute (4) Acute kidney injury superimposed on CKD Status: Acute (5) Wound infection Status: Acute (6) Fall Status: Acute Qualifiers: Encounter type: initial encounter Qualified Codes: W19.XXXA - Unspecified fall, initial encounter Supervisory-Addendum Brief Verification & Attestation Participated in pt care: history, MDM, physical Personally performed: exam, history, MDM, supervision of care Care discussed with: Medical Student Procedures: n/a Results interpretation: Verified all documentation A medical student performed and documented this service in my presence. I reviewed and verified all information documented by the medical student and made modifications to such information, when appropriate. I personally performed the physical exam and medical decision making. LANIE KONG Jan 25, 2021 16:42 JOVANY REESE MD Jan 26, 2021 16:57
[2021-01-25] MEDS: MEMANTINE 10 MG (NAMENDA) TABLET PO SCH (17:37)
[2021-01-25] MEDS: CEPHALEXIN 250 MG (KEFLEX) CAP PO SCH ×2 (17:37→20:56)
[2021-01-25 20:00] VITALS: BP 156/77
[2021-01-25] MEDS: LACTATED RINGERS 1,000 ML IV SCH (20:53)
[2021-01-25] MEDS: AtorvaSTATin TABLET 10 MG TABLET PO SCH (20:56)
[2021-01-25] MEDS: MELATONIN 3 MG TABLET PO SCH (20:56)
[2021-01-25] MEDS: DONEPEZIL 10 MG (ARICEPT) TAB PO SCH (20:56)
[2021-01-25] MEDS: QUEtiapine 100 MG (SEROquel) TAB IMMEDIATE RELEASE PO SCH (20:57)
[2021-01-25] MEDS ORDERED: PILOCARPINE 5 MG PO SCH (21:00)
[2021-01-25] MEDS: clonazePAM 1 MG (KlonoPIN) TAB PO SCH (21:00)
[2021-01-25] MEDS: BACLOFEN 10 MG (LIORESAL) TAB PO SCH (21:00)
[2021-01-26] VITALS: BP 154/71
[2021-01-26 04:00] VITALS: BP 177/71
[2021-01-26] MEDS: LEVOTHYROXINE 100 MCG (LEVOTHROID) TAB PO SCH (05:45)
[2021-01-26] MEDS: LEVOTHYROXINE 75 MCG (LEVOTHROID) TABLET PO SCH (05:45)
[2021-01-26 05:54] LABS: BASOPHILS # (AUTO) 0.1 10^3/uL (0.0-0.1); BASOPHILS % (AUTO) 1 % (0-10); EOSINOPHILS % (AUTO) 0 % (0-10); HEMATOCRIT 30 % (35-52); HEMOGLOBIN 9.5 g/dL (11.5-16.0); LYMPHOCYTES # (AUTO) 1.1 10^3/uL (1.0-4.0); LYMPHOCYTES % (AUTO) 12 % (12-44); MEAN CORPUSCULAR HEMOGLOBIN 29 pg (25-34); MEAN CORPUSCULAR HGB CONC 32 g/dL (32-36); MEAN CORPUSCULAR VOLUME 91 fL (80-99); MONOCYTES # (AUTO) 0.7 10^3/uL (0.0-1.0); MONOCYTES % (AUTO) 7 % (0-12); NEUTROPHILS # (AUTO) 7.4 10^3/uL (1.8-7.8); NEUTROPHILS % (AUTO) 79 % (42-75); PLATELET COUNT 216 10^3/uL (130-400); WHITE BLOOD COUNT 9.3 10^3/uL (4.3-11.0)
[2021-01-26 06:09] LABS: CALCIUM 8.5 MG/DL (8.5-10.1)
[2021-01-26] MEDS: inSUlin ASPART (NovoLOG) 1 UNIT/0.01 ML (CHARGE PER UNIT) SC SCH ×4 (06:11→21:06)
[2021-01-26 06:13] LABS: CREATININE SERUM 1.42 MG/DL (0.60-1.30)
--- NOTE | 2021-01-26 07:15 | Diagnostic Imaging Report ---
INDICATION: AMS. Weakness. COMPARISON: 11/25/2020. FINDINGS: Heart remains mildly enlarged. The lungs remain relatively well aerated. No infiltrates are demonstrated. No pulmonary edema. No pneumothorax or pleural effusion. IMPRESSION: Cardiomegaly with no acute changes noted. Dictated by: Dictated on workstation # [id number]
[2021-01-26 08:00] VITALS: BP 163/63
[2021-01-26] MEDS: eZETimibe 10 MG (ZETIA) TABLET PO SCH ×2 (08:03→10:29)
[2021-01-26] MEDS: BACLOFEN 10 MG (LIORESAL) TAB PO SCH ×5 (08:03→19:46)
[2021-01-26] MEDS: CEPHALEXIN 250 MG (KEFLEX) CAP PO SCH ×5 (08:03→19:45)
[2021-01-26] MEDS: clonazePAM 1 MG (KlonoPIN) TAB PO SCH ×4 (08:03→19:46)
[2021-01-26] MEDS: ALLOPURINOL 100 MG (ZYLOPRIM) TAB PO SCH ×2 (08:03→10:30)
[2021-01-26] MEDS: ASPIRIN E.C. 81 MG (ECOTRIN) TAB PO SCH ×2 (08:03→10:29)
[2021-01-26] MEDS: MEMANTINE 10 MG (NAMENDA) TABLET PO SCH ×3 (08:03→17:10)
[2021-01-26] MEDS: fluCOnazole (DIFLUCAN) 100 MG TAB PO SCH ×2 (08:04→10:28)
[2021-01-26] MEDS: PANTOPRAZOLE 40 MG (PROTONIX) TAB PO SCH ×2 (08:04→10:29)
[2021-01-26] MEDS: SERTRALINE 100 MG (ZOLOFT) TAB PO SCH ×2 (08:04→10:29)
[2021-01-26] MEDS: LACTATED RINGERS 1,000 ML IV SCH ×2 (08:20→22:57)
--- NOTE | 2021-01-26 09:35 | Physical Therapy Progress Note ---
Therapy Progress Note Spoke with Dr Grullon. Patient condition is declining with decreased cognition and physical function. More tests are being ordered to rule out CVA and other neuro diagnoses. Will check on status tomorrow and complete eval if patient able to tolerate. ALAN DUMONT PT Jan 26, 2021 09:35
[2021-01-26] MEDS ORDERED: LORazepam INJ 2 MG/ML (ATIVAN) VIAL IVP ONE (09:45)
[2021-01-26] MEDS: cefTRIAXone 2,000 MG/SWFI 20 ML IV PUSH IV SCH ×4 (10:58→21:27)
[2021-01-26] MEDS: AMPICILLIN IV SCH ×6 (11:10→22:46)
[2021-01-26] MEDS: [UNRECOGNIZED DRUG - OTHER] IV SCH ×6 (11:10→22:46)
[2021-01-26] MEDS: VANCOMYCIN 1,750 MG/NS 500 ML IVPB IV SCH ×2 (11:11)
--- NOTE | 2021-01-26 11:14 | Progress Note - Hospitalist ---
KAREL KONGIN 01/26/21 1114: Subjective HPI/CC On Admission Time Seen by Provider: 08:15 Franca Flowers is a 80y/o F who presents with AMS. History was given by daughter. The daughter reports pt had facial droop yesterday that resolved spontaneously. Then today the daughter was checking the video from the camera that is in the pt's house and had not seen her move by the camera in hours. Someone then went over to where the pt lives to check on her and found her sleeping in her chair which she never does according to the daughter. They also noticed that the pt's hands were shaking much more than her normal small tremor. Pt's blood glucose was then checked by the family and was low. They then gave her some oral glucose which caused the sxns to improve some but she was still not to baseline. At this point it was decided to have the pt brought into the emergency room. Has not had an episode like this in the past according to daughter. Pt does have a PMH of TIA. Laceration on right rivera from a fall she had last week when daughter was trying to load her into her van. Pt has a Daughter is unsure if pt has taken her meds today. Pt was evaluated for Parkinsons disease about 10 years ago and she was not diagnosed at that time daughter states. Subjective/Events-last exam Information given by daughter as pt did not respond back to me. She reports that pt is having issues swallowing her medications and water. Pt using her left arm for almost all movements and is holding her right arm across her chest. Having fevers according to the daughter. Tremors have not improved from when she was last seen. Review of Systems General: Other (fever) HEENT: Other (dysphagia) Unable to obtain any further ROS findings since pt was not talking and daughter only knew about the dysphagia and fever Objective Exam Vital Signs Vital Signs Date Time Temp Pulse Resp B/P (MAP) Pulse Ox O2 Delivery O2 Flow Rate FiO2 01/26/21 08:00 38.4 98 20 163/63 (96) 93 Room Air Capillary Refill : Less Than 3 Seconds General Appearance: WD/WN, Mild Distress HEENT: Photophobia (Pt would not open eyes but said she was trying. When manually opened she would try to shut them when light was shined into eyes) Neck: Other (nuchal rigidity ) Respiratory: Lungs Clear, Normal Breath Sounds Cardiovascular: No Murmur, Tachycardia Gastrointestinal: Non Tender, Soft Extremity: Swelling (rt leg larger than lf. No pitting edema), Other (laceration on rt leg. ) Neurologic/Psychiatric: Motor Weakness (mechanical manufacturing technician strength 1-2/5 b/l) Results/Procedures Lab Laboratory Tests 01/26/21 05:23 Patient resulted labs reviewed. Assessment/Plan Assessment and Plan Assess & Plan/Chief Complaint Assessment Meningitis-like sxns stroke-like sxns parkinson-like sxns HTN CKD hyperlipidemia lower lung atelectasis plan Head MRI ordered. LP and CSF panel ordered. Vancomycin, ceftriaxone, ampicillin, acyclovir, and dexamethasone started for empiric meningitis treatment. Continue monitoring JOVANY REESE MD 01/26/213: Subjective HPI/CC On Admission Date Seen by Provider: Jan 26, 2021 Time Seen by Provider: 09:25 Objective Exam General Appearance: No Apparent Distress, Obese HEENT: Photophobia (refusing to open eyes, resists attempts to open) Neck: Other (nuchal rigidity present) Respiratory: Lungs Clear, Normal Breath Sounds, No Respiratory Distress Cardiovascular: Regular Rate, Rhythm, No Murmur Gastrointestinal: Normal Bowel Sounds, Soft Extremity: Pedal Edema, Other (right leg laceration with bandage in place) Neurologic/Psychiatric: Alert (responds to some questions appropriately), Motor Weakness (lower extremity paralysis, upper extremity rigidity) Skin: Diaphoresis, Erythema (facial flushing, warm) Results/Procedures Imaging: Reviewed Imaging Films, Reviewed Imaging Report Assessment/Plan Assessment and Plan Assess & Plan/Chief Complaint Acute encephalopathy Hypoglycemia, resolved Possible meningitis Stroke like symptoms Sepsis CT Head negative Blood sugar low, now resolved Urine tox positive for TCAs Infectious workup negative UA negative CXR negative x2 Procal normal Obtain blood cultures and lactic acid Obtain lumbar puncture Obtain MRI Brain Giving Decadron Begin Vancomycin, Rocephin, Ampicillin, Acyclovir for empiric meningitis treatment CAMPBELL on CKD 3b Fluids, improving Hypothyroidism Check TSH Parkonsonian features Dementia Likely Parkinsons disease DVT prophylaxis: Lovenox Diagnosis/Problems Diagnosis/Problems (1) Stroke-like symptoms Status: Acute (2) Hypoglycemia due to type 2 diabetes mellitus Status: Acute (3) Acute kidney injury superimposed on CKD Status: Acute (4) Parkinsonian features Status: Acute (5) Wound infection Status: Acute (6) Fall Status: Acute Qualifiers: Qualified Codes: W19.XXXA - Unspecified fall, initial encounter (7) Sepsis Supervisory-Addendum Brief Verification & Attestation Participated in pt care: history, MDM, physical Personally performed: exam, history, MDM, supervision of care Care discussed with: Medical Student Procedures: n/a Results interpretation: Verified all documentation A medical student performed and documented this service in my presence. I reviewed and verified all information documented by the medical student and made modifications to such information, when appropriate. I personally performed the physical exam and medical decision making. LANIE KONG Jan 26, 2021 11:14 JOVANY REESE MD Jan 26, 2021 17:13
[2021-01-26 12:00] VITALS: BP 166/69
--- NOTE | 2021-01-26 12:05 | Occ Therapy Progress Note ---
Therapy Progress Note OT evaluation received, chart reviewed. Pt. on hold for therapy per PT due to change in medical status and ongoing testing. Will monitor and evaluate in a.m. if pt. able. 1205 NOELLE STEVENS OT Jan 26, 2021 12:05
[2021-01-26] MEDS: LORazepam INJ 2 MG/ML (ATIVAN) VIAL IVP SCH ×2 (12:33→21:27)
[2021-01-26 13:34] LABS: CSF GLUCOSE 69 MG/DL (50-80)
--- NOTE | 2021-01-26 13:36 | Anesthesia-Procedure Note ---
Procedures/Interventions Procedure Start/Stop/Diagnosis Date of Procedure: Jan 26, 2021 Start Time: 12:45 Referring Physician: Yadi Preprocedural Diagnosis: Alt mental status, R/O Meningtitis Brief History Consulted by Dr. Grullon for LP on pt who came in for altered mental status and to R/O meningitis. Pt was awake and alert in room on arrival. Procedure explained to pt in detail and answered all questions. Pt agreed to LP and signed consent. With assistance from RN, pt was turned left lateral decubitus. Pt tolerated her side well during procedure. Betadine prep x3 to Lumbar spine. 5cc Lidocaine plain for skin. Intially attempted #22g pencil point without success under sterile technique. Changed to 20g provided in kit. Good CSF flow. Opening pressure 21cm H2O. 4 individual samples obtained and provided to RN to send to Lab. 2-3cc CSF in each specimen container. Band aid applied to needle location. Advised pt and RN to lay supine for 2 hours. No complaints VSS. Stop Time: 13:00 Postprocedural Diagnosis: Alt mental status, R/O Meningitis Lumbar Puncture Discussed Risk,Benefits: Yes Patient Consents: Yes Position: Lying, L3-4, Left Sterile Technique: Yes Spinal Needle Used: 20g Quinke 3 1/2ioctavioh GONZÁLEZ DACOSTA CRNA Jan 26, 2021 13:36
[2021-01-26 13:41] LABS: CSF TOTAL PROTEIN 46 MG/DL (15-40)
[2021-01-26 13:44] LABS: APPEARANCE,CSF CLEAR; COLOR,CSF COLORLESS; CSF TUBE NUMBER 4; RED BLOOD CELL,CSF 1 CELLS (0-0); WHITE BLOOD CELL,CSF 1 CELLS (0-5)
[2021-01-26] MEDS ORDERED: GADOBUTROL 10 MMOL/10 ML (GADAVIST) VIAL IV ONE (15:30)
[2021-01-26 16:00] VITALS: BP 195/87
--- NOTE | 2021-01-26 16:05 | Diagnostic Imaging Report ---
PROCEDURE: MR imaging of the brain with and without contrast. TECHNIQUE: Multiplanar, multisequence MR imaging of the brain was performed with and without contrast. DATE: January 26, 2021. COMPARISON: CT head and cervical spine January 25, 2021. HISTORY: 80-year-old female, altered mental status. FINDINGS: There is no restricted diffusion. There is no area of abnormal intracranial susceptibility. There is proportional prominence of the ventricles and CSF spaces consistent with mild to moderate cerebral volume loss. There is no abnormal extra axial fluid collection. There is no acute intracranial hemorrhage. There is no mass effect or midline shift. There are areas of T2 and FLAIR hyperintense signal in the periventricular and subcortical white matter most likely reflecting moderate findings of chronic small vessel ischemic disease. There is no identified abnormal intracranial enhancement. There is complete opacification of the right maxillary sinus and also in the right sphenoid sinus. There is near complete opacification of the right frontal sinus and opacification within right ethmoidal air cells. IMPRESSION: 1. No identified acute intracranial abnormality. 2. Mild to moderate cerebral volume loss with moderate findings of chronic small vessel ischemic disease. 3. Nonspecific paranasal sinus opacification. Recommend correlation for possible acute sinusitis. Dictated by: Dictated on workstation # [id number]
[2021-01-26] MEDS: ACYCLOVIR INJECTION 650 MG in NS (IVPB) 250 ML IV SCH (17:10)
[2021-01-26] MEDS: DONEPEZIL 10 MG (ARICEPT) TAB PO SCH (19:45)
[2021-01-26] MEDS: AtorvaSTATin TABLET 10 MG TABLET PO SCH (19:46)
[2021-01-26] MEDS: MELATONIN 3 MG TABLET PO SCH (19:46)
[2021-01-26] MEDS: QUEtiapine 100 MG (SEROquel) TAB IMMEDIATE RELEASE PO SCH (19:46)
[2021-01-26 19:52] VITALS: BP 181/63
[2021-01-26] MEDS: ENOXAPARIN 40 MG/0.4 ML (LOVENOX) SYR SC SCH (21:27)
[2021-01-27] VITALS (7 sets, daily range): BP systolic 167–186; BP diastolic 65–82
[2021-01-27] MEDS: inSUlin ASPART (NovoLOG) 1 UNIT/0.01 ML (CHARGE PER UNIT) SC SCH ×6 (00:25→21:34)
[2021-01-27] MEDS: LACTATED RINGERS 1,000 ML IV SCH (04:35)
[2021-01-27] MEDS: ACYCLOVIR INJECTION 650 MG in NS (IVPB) 250 ML IV SCH ×2 (04:36→16:04)
[2021-01-27] MEDS: [UNRECOGNIZED DRUG - OTHER] IV SCH ×4 (04:44→10:42)
[2021-01-27] MEDS: AMPICILLIN IV SCH ×4 (04:44→10:42)
[2021-01-27] MEDS: LEVOTHYROXINE 75 MCG (LEVOTHROID) TABLET PO SCH ×2 (05:29→12:15)
[2021-01-27] MEDS: LEVOTHYROXINE 100 MCG (LEVOTHROID) TAB PO SCH ×2 (05:29→12:15)
[2021-01-27 06:31] LABS: BASOPHILS % (AUTO) 0 % (0-10); EOSINOPHILS % (AUTO) 0 % (0-10); HEMATOCRIT 31 % (35-52); HEMOGLOBIN 9.7 g/dL (11.5-16.0); LYMPHOCYTES % (AUTO) 13 % (12-44); MEAN CORPUSCULAR HEMOGLOBIN 29 pg (25-34); MEAN CORPUSCULAR HGB CONC 32 g/dL (32-36); MEAN CORPUSCULAR VOLUME 92 fL (80-99); MEAN PLATELET VOLUME 9.4 fL (9.0-12.2); MONOCYTES # (AUTO) 0.5 10^3/uL (0.0-1.0); MONOCYTES % (AUTO) 7 % (0-12); NEUTROPHILS # (AUTO) 6.1 10^3/uL (1.8-7.8); NEUTROPHILS % (AUTO) 79 % (42-75); PLATELET COUNT 207 10^3/uL (130-400); WHITE BLOOD COUNT 7.6 10^3/uL (4.3-11.0)
[2021-01-27 06:40] LABS: POTASSIUM 3.7 MMOL/L (3.6-5.0)
[2021-01-27 06:41] LABS: CALCIUM 8.9 MG/DL (8.5-10.1)
[2021-01-27 06:45] LABS: CREATININE SERUM 1.34 MG/DL (0.60-1.30)
[2021-01-27] MEDS: MEMANTINE 10 MG (NAMENDA) TABLET PO SCH ×2 (08:12→17:02)
[2021-01-27] MEDS: BACLOFEN 10 MG (LIORESAL) TAB PO SCH ×4 (08:12→20:11)
[2021-01-27] MEDS: clonazePAM 1 MG (KlonoPIN) TAB PO SCH ×4 (08:12→20:12)
[2021-01-27] MEDS: PANTOPRAZOLE 40 MG (PROTONIX) TAB PO SCH ×2 (08:13→12:14)
[2021-01-27] MEDS: fluCOnazole (DIFLUCAN) 100 MG TAB PO SCH ×2 (08:13→12:13)
[2021-01-27] MEDS: ALLOPURINOL 100 MG (ZYLOPRIM) TAB PO SCH ×2 (08:14→12:14)
[2021-01-27] MEDS: SERTRALINE 100 MG (ZOLOFT) TAB PO SCH (08:14)
[2021-01-27] MEDS: eZETimibe 10 MG (ZETIA) TABLET PO SCH ×2 (08:14→12:14)
[2021-01-27] MEDS: cefTRIAXone 2,000 MG/SWFI 20 ML IV PUSH IV SCH ×2 (08:32)
[2021-01-27] MEDS: LORazepam INJ 2 MG/ML (ATIVAN) VIAL IVP SCH ×3 (08:32→20:10)
--- NOTE | 2021-01-27 09:50 | Physical Therapy Evaluation ---
PT Evaluation-General Medical Diagnosis Admission Date Jan 25, 2021 at 13:00 Medical Diagnosis: hypoglycemia/CAMPBELL/wound infection Onset Date: Jan 25, 2021 Therapy Diagnosis Therapy Diagnosis: generalized weakness/debility Height/Weight Height (Feet): 5 Height (Inches): 2.00 Weight (Pounds): 212 Weight (Ounces): 9.0 Precautions Precautions/Isolations: Fall Prevention, Standard Precautions Referral Physician: Yadi Reason for Referral: Evaluation/Treatment Medical History Pertinent Medical History: CAD, DM, HTN, Renal Insufficiency Current History EMS secondary to AMS Reviewed History: Yes Prior Prior Level of Function SCALE: Activities may be completed with or without assistive devices. 3-Xveeglgmnx-xiwrslo completes the activity by him/herself with no assistance from a helper. 5-Set-up or Clean-up Assistance-helper sets up or cleans up; patient completes activity. [place] assists only prior to or following the activity. 4-Supervision or Touching Assistance-helper provides verbal cues and/or touching/steadying and/or contact guard assistance as patient completes activity. Assistance may be provided throughout the activity or intermittently. 3-Partial/Moderate Assistance-helper does LESS THAN HALF the effort. [place] lifts, holds or supports trunk or limbs, but provides less than half the effort. 2-Substantial/Maximal Assistance-helper does MORE THAN HALF the effort. [place] lifts or holds trunk or limbs and provides more than half the effort. 6-Azaitajiy-pkbhfu does ALL the effort. Patient does none of the effort to complete the activity. Or, the assistance of 2 or more helpers is required for the patient to complete the activity. If activity was not attempted, code reason: 7-Patient Refused. 9-Not Applicable-not attempted and the patient did not perform the activity before the current illness, exacerbation or injury. 10-Not Attempted due to Environmental Limitations-(lack of equipment, weather restraints, etc.). 88-Not Attempted due to Medical Conditions or Safety Concerns. Bed Mobility: 5 Transfers (B,C,W/C): 5 Gait: 5 Indoor Mobility (Ambulation): Independent Stairs: Not Applicalbe PT Evaluation-Current Subjective Patient agrees to PT. Noted confusion. Objective Patient Orientation: Confused Attachments: Tatum Catheter, IV ROM/Strength ROM Lower Extremities bilateral LE WFL Strength Lower Extremities 3-/5 grossly bilateral LE ( no formal testing due to inability to follow direction) Integumentary/Posture Bladder Incontinence: Tatum Cath Neuromuscular (Tone, Coordination, Reflexes) noted tremors/severely diminished coordination with all mobility (difficulty with motor planning) Sensory Vision: Functional Hearing: Functional Transfers Roll Left to Right (QC): 1 Sit to Lying (QC): 1 Lying to Sitting/Side of Bed(Q: 1 Sit to Stand (QC): 1 Chair/Dng-wa-Mwuyb Xfer(QC): 88 Toilet Transfer (QC): 88 severely retropulsive and left lean with inability to correct with increase resistance with PT attempt to correct posture. Gait Does the Patient Walk?: No and Walking Goal IS indicated Distance: 3 side steps Gait Assistive Device: FWW Comments/Gait Description dependent assist to maintain erect posture/position Balance Sitting Static: Poor Sitting Dynamic: Poor Standing Static: Poor Standing Dynamic: Poor Picking up an Object (QC): 88 Assessment/Needs 80 y.o. female, will benefit from skilled PT to address functional strength and mobility to improve current LOF. Patient is severely debilitated with extreme retropulsion and left lean. Rehab Potential: Guarded PT Short Term Goals Short Term Goals Time Frame: Feb 09, 2021 Roll Left & Right: 3 Sit to lyin Lying to sitting on side of be: 3 Sit to stand: 3 Chair/dku-sy-bwueb transfer: 3 Toilet transfer: 3 Car transfer: 3 Walk 10 feet: 3 Walk 50 feet with two turns: 3 Walk 150 feet: 3 PT Lining Ironer Goals Lining Ironer Goals PT Senior Living Goals Time Frame: Feb 19, 2021 Roll Left & Right (QC): 4 Sit to Lying (QC): 4 Lying-Sitting on Side/Bed(QC): 4 Sit to Stand (QC): 4 Chair/Ojp-hq-Qvpip Xfer(QC): 4 Toilet Transfer (QC): 4 Does the Patient Walk: Yes Walk 10 feet (QC): 3 Walk 50ft with 2 Turns (QC): 3 Walk 150 ft (QC): 3 PT Plan Problem List Problem List: Activity Tolerance, Functional Strength, Safety, Balance, Gait, Transfer, Bed Mobility Treatment/Plan Treatment Plan: Continue Plan of Care Treatment Plan: Bed Mobility, Education, Functional Activity Stewart, Functional Strength, Gait, Safety, Therapeutic Exercise, Transfers Treatment Duration: Feb 19, 2021 Frequency: 6 times per week Estimated Hrs Per Day: .25 hour per day Time/GCodes Time In: 802 Time Out: 816 Total Billed Treatment Time: 14 [facility] GHULAM HAMM [facility] Jan 27, 2021 09:50
[2021-01-27] MEDS: VANCOMYCIN 1,750 MG/NS 500 ML IVPB IV SCH ×2 (10:42)
[2021-01-27] MEDS: hydrALAZINE (APESOLINE) 20 MG/ML VIAL IV PRN (10:43)
--- NOTE | 2021-01-27 10:55 | Progress Note - Hospitalist ---
LANIE KONG 01/27/21 1055: Subjective HPI/CC On Admission Time Seen by Provider: 08:21 Subjective/Events-last exam Pt states that she is doing fine. Able to talk and respond appropriately to questions. Says that she does not remember much of what happened yesterday. Hand tremors have improved slightly from yesterday. Review of Systems General: No Chills, No Other (fever) HEENT: No Head Aches Pulmonary: No Dyspnea, No Cough Cardiovascular: No: Chest Pain, Palpitations Gastrointestinal: No: Nausea, Vomiting Neurological: No: Numbness, Other (tingling ) Focused Exam Lactate Level 01/26/21 16:40: Lactic Acid Level 0.65 Objective Exam Vital Signs Vital Signs Date Time Temp Pulse Resp B/P (MAP) Pulse Ox O2 Delivery O2 Flow Rate FiO2 01/27/21 08:49 97 Room Air 01/27/21 08:00 36.5 100 18 185/82 (116) Capillary Refill : Less Than 3 Seconds General Appearance: No Apparent Distress, Obese HEENT: No Photophobia; Other (EOMI, anisocoria L>R) Neck: Full Range of Motion Respiratory: Chest Non Tender, Lungs Clear Cardiovascular: No Murmur, Tachycardia Gastrointestinal: Non Tender, Soft Extremity: Normal Inspection, No Pedal Edema Neurologic/Psychiatric: Alert, Other (delivery rn strength 4/5 b/l, hand tremor) Results/Procedures Lab Laboratory Tests 01/27/21 05:22 Patient resulted labs reviewed. Imaging: Reviewed Imaging Films, Reviewed Imaging Report Assessment/Plan Assessment and Plan Assess & Plan/Chief Complaint Assessment Acute encephalopathy Meningitis-like sxns stroke-like sxns parkinson-like sxns HTN CKD hyperlipidemia lower lung atelectasis plan Continue current medications and monitoring JOVANY REESE MD 01/27/21 1831: Subjective HPI/CC On Admission Date Seen by Provider: Jan 27, 2021 Assessment/Plan Assessment and Plan Assess & Plan/Chief Complaint Acute encephalopathy Stroke like symptoms Sepsis Acute bacterial sinusitis Bipolar disorder Unclear etiology CT Head negative Urine tox positive for TCAs Infectious workup negative UA negative CXR negative x2 Procal normal Blood cultures with no growth to date Lumbar puncture with no WBC elevation, CSF gram stain with rare WBC and no bacteria, CSF culture no growth to date MRI Brain negative for acute abnormalities Discontinue isolation Stop Vancomycin and Ampicillin Awaiting herpes viral culture Continue Acyclovir for empiric Herpes meningitis treatment Continue Rocephin for acute bacterial sinusitis CAMPBELL on CKD 3b Fluids, improving Hypothyroidism Euthyroid sick syndrome TSH low T3 and T4 normal Parkonsonian features Dementia Likely Parkinsons disease DVT prophylaxis: Lovenox Hypoglycemia, resolved Diagnosis/Problems Diagnosis/Problems (1) Acute encephalopathy Status: Acute (2) Rigidity Status: Acute (3) Anisocoria Status: Acute (4) Tremor Status: Acute (5) Stroke-like symptoms Status: Acute (6) Parkinsonian features Status: Acute (7) Acute kidney injury superimposed on CKD Status: Acute (8) Sepsis Status: Acute (9) Acute bacterial sinusitis Status: Acute Supervisory-Addendum Brief Verification & Attestation Participated in pt care: history, MDM, physical Personally performed: exam, history, MDM, supervision of care Care discussed with: Medical Student Procedures: n/a Results interpretation: Verified all documentation A medical student performed and documented this service in my presence. I reviewed and verified all information documented by the medical student and made modifications to such information, when appropriate. I personally performed the physical exam and medical decision making. LANIE KONG Jan 27, 2021 10:55 JOVANY REESE MD Jan 27, 2021 18:31
[2021-01-27 14:52] LABS: CREATINE KINASE 381 U/L (29-168)
--- NOTE | 2021-01-27 16:01 | Occupational Therapy Eval ---
OT Evaluation-General/PLF Medical Diagnosis Admission Date Jan 25, 2021 at 13:00 Medical Diagnosis: hypoglycemia/CAMPBELL/wound infection Onset Date: Jan 25, 2021 Therapy Diagnosis Therapy Diagnosis: Weakness, Decreased ADL skills Height/Weight Height (Feet): 5 Height (Inches): 2.00 Weight (Pounds): 212 Weight (Ounces): 9.0 Precautions Precautions/Isolations: Fall Prevention, Standard Precautions Weight Bear Status Weight Bearing Restriction: Weight Bearing/Tolerated Referral Physician: Yadi Referral Reason: Activity Tolerance, Self Care, Evaluation/Treatment, Strengthening/ROM Medical History Pertinent Medical History: CAD, DM, HTN, Renal Insufficiency Additional Medical History Carpal tunnel, TIA, Rotator cuff Current History Pt. brought to ER with AMS, right facial droop, decrease glucose. Pt. had spinal tap to rule out Meningitis. Test negative. Reviewed History: Yes Social History Pt. poor historian. She does state that she lives in [place], and that her daughters take care of her. ADL-Prior Level of Function SCALE: Activities may be completed with or without assistive devices. 7-Ktsvewsywn-rbjbjiq completes the activity by him/herself with no assistance from a helper. 5-Set-up or Clean-up Assistance-helper sets up or cleans up; patient completes activity. [place] assists only prior to or following the activity. 4-Supervision or Touching Assistance-helper provides verbal cues and/or touching/steadying and/or contact guard assistance as patient completes activity. Assistance may be provided throughout the activity or intermittently. 3-Partial/Moderate Assistance-helper does LESS THAN HALF the effort. [place] lifts, holds or supports trunk or limbs, but provides less than half the effort. 2-Substantial/Maximal Assistance-helper does MORE THAN HALF the effort. [place] lifts or holds trunk or limbs and provides more than half the effort. 9-Fbbgfntjy-yuyown does ALL the effort. Patient does none of the effort to complete the activity. Or, the assistance of 2 or more helpers is required for the patient to complete the activity. If activity was not attempted, code reason: 7-Patient Refused. 9-Not Applicable-not attempted and the patient did not perform the activity before the current illness, exacerbation or injury. 10-Not Attempted due to Environmental Limitations-(lack of equipment, weather restraints, etc.). 88-Not Attempted due to Medical Conditions or Safety Concerns. ADL PLOF Comments Pt. states that she lives alone, but then states that her daughters help her bathe and dress. When asked if she has difficulty doing this, she states, "no, they just love me." Pt. slightly confused. Self Care: Unknown Functional Cognition: Unknown OT Current Status Subjective Pt. does not state pain level. Appearance Pt. in bed. Agrees to work with OT. Mental Status/Objective Patient Orientation: Unable to Assess ADL-Treatment On/Off Footwear (QC): 2 Toileting Hygiene (QC): 1 (Catheter) Other Treatments Pt. in bed. She is pleasant and agrees to work with OT. Pt. poor historian. She is unable to state what she is able to do for herself, or why she is at the hospital. Pt. transfers supine-sit with max assist, as she states throughout treatment that she is "stuck." Once sitting on EOB, pt. agreed to stand with walker. Required mod assist. Pt. attempted to take steps away from bed. She was able to take 3 steps, and states that she is too weak. Pt. backs up and sits quickly on the bed. After resting, pt. stands again with walker and is able to take steps toward HOB and sits again. Pt. requires mod assist to transfer sit-supine. All needs met. Bed alarm set. Education OT Patient Education: Correct positioning, Modified ADL techniques, Progress toward Goal/Update tx plan, Purpose of tx/functional activities, Reviewed precautions, Rehab process, Transfer techniques Teaching Recipient: Patient Teaching Methods: Demonstration, Discussion Response to Teaching: Verbalize Understanding, Return Demonstration OT Short Term Goals Short Term Goals Time Frame: Feb 03, 2021 Eatin Oral hygiene: 4 Toileting hygiene: 3 Upper body dressin Lower body dressin Putting on/taking off footwear: 4 OT Donor Center Technician Goals Donor Center Technician Goals Time Frame: Feb 10, 2021 Eating (QC): 6 Oral Hygiene (QC): 5 Toileting Hygiene (QC): 4 Shower/Bathe Self (QC): 4 Upper Body Dressing (QC): 5 Lower Body Dressing (QC): 4 On/Off Footwear (QC): 4 Additional Goals: 1-Demonstrate ADL Tasks, 2-Verbalize Understanding, 3- ImproveStrength/Stewart 1=Demonstrate adherence to instructed precautions during ADL tasks. 2=Patient will verbalize/demonstrate understanding of assistive devices/modifications for ADL. 3=Patient will improve strength/tolerance for activity to enable patient to perform ADL's. OT Education/Plan Problem List/Assessment Assessment: Decreased Activ Tolerance, Decreased Safety Aware, Decreased UE Strength, Dependent Transfers, Impaired Bed Mobility, Impaired Cognition, Impaired Funct Balance, Impaired I ADL's, Impaired Self-Care Skills Discharge Recommendations Plan/Recommendations: Continue POC Therapy Discharge Recommendati: 24 Hour Supervision, Post Acute OT Treatment Plan/Plan of Care Treatment,Training & Education: Yes Patient would benefit from OT for education, treatment and training to promote independence in ADL's, mobility, safety and/or upper extremity function for ADL's. Plan of Care: ADL Retraining, Functional Mobility, UE Funct Exercise/Act Treatment Duration: Feb 10, 2021 Frequency: 5 times per week Estimated Hrs Per Day: .25 hour per day Agreement: Yes Rehab Potential: Fair Time/GCodes Start Time: 15:10 Stop Time: 15:25 Total Time Billed (hr/min): 15 Billed Treatment Time 1, NOELLE HOOD OT Jan 27, 2021 16:01
[2021-01-27] MEDS: AtorvaSTATin TABLET 10 MG TABLET PO SCH (20:10)
[2021-01-27] MEDS: ENOXAPARIN 40 MG/0.4 ML (LOVENOX) SYR SC SCH (20:10)
[2021-01-27] MEDS: DONEPEZIL 10 MG (ARICEPT) TAB PO SCH (20:10)
[2021-01-27] MEDS: QUEtiapine 100 MG (SEROquel) TAB IMMEDIATE RELEASE PO SCH (20:11)
[2021-01-27] MEDS: MELATONIN 3 MG TABLET PO SCH (20:13)
[2021-01-28] MEDS: LACTATED RINGERS 1,000 ML IV SCH (00:06)
[2021-01-28] MEDS: inSUlin ASPART (NovoLOG) 1 UNIT/0.01 ML (CHARGE PER UNIT) SC SCH ×6 (00:06→20:00)
[2021-01-28 03:01] VITALS: BP 174/74
[2021-01-28] MEDS: ACYCLOVIR INJECTION 650 MG in NS (IVPB) 250 ML IV SCH (05:04)
[2021-01-28] MEDS: LEVOTHYROXINE 100 MCG (LEVOTHROID) TAB PO SCH (05:35)
[2021-01-28] MEDS: LEVOTHYROXINE 75 MCG (LEVOTHROID) TABLET PO SCH (05:35)
--- NOTE | 2021-01-28 07:07 | Diagnostic Imaging Report ---
EXAMINATION: Chest 1 view HISTORY: Fever COMPARISON: 01/26/2021 FINDINGS: Heart size and pulmonary vasculature are stable. Mild interstitial opacities in the lung bases. No pleural effusion or pneumothorax. There are calcifications of the aorta. Degenerative changes of the thoracic spine. Osseous structures are otherwise intact. IMPRESSION: 1. Minimal interstitial opacities in the lung bases, not significantly changed from 01/26/2021. Findings could be seen with atelectasis although atypical infection or edema would be within the differential. Dictated by: Dictated on workstation # [id number]
[2021-01-28 07:45] VITALS: BP 187/77
[2021-01-28] MEDS: eZETimibe 10 MG (ZETIA) TABLET PO SCH (08:08)
[2021-01-28] MEDS: SERTRALINE 100 MG (ZOLOFT) TAB PO SCH (08:08)
[2021-01-28] MEDS: BACLOFEN 10 MG (LIORESAL) TAB PO SCH ×4 (08:08→22:39)
[2021-01-28] MEDS: PANTOPRAZOLE 40 MG (PROTONIX) TAB PO SCH (08:09)
[2021-01-28] MEDS: ALLOPURINOL 100 MG (ZYLOPRIM) TAB PO SCH (08:09)
[2021-01-28] MEDS: clonazePAM 1 MG (KlonoPIN) TAB PO SCH ×3 (08:09→22:39)
[2021-01-28] MEDS: MEMANTINE 10 MG (NAMENDA) TABLET PO SCH ×2 (08:09→17:23)
[2021-01-28] MEDS: fluCOnazole (DIFLUCAN) 100 MG TAB PO SCH (08:09)
[2021-01-28] MEDS: cefTRIAXone 2,000 MG in WATER (STERILE) FOR INJECTION 20 ML IV SCH (08:12)
[2021-01-28] MEDS: LORazepam INJ 2 MG/ML (ATIVAN) VIAL IVP SCH ×3 (08:13→20:11)
--- NOTE | 2021-01-28 09:30 | Physical Therapy Daily Note ---
PT Daily Note-Current Subjective Patient much more alert on this date and agrees to PT. Mental Status Patient Orientation: Person Attachments: Tatum Catheter, IV Transfers SCALE: Activities may be completed with or without assistive devices. 4-Hetatdjpue-sqcaczx completes the activity by him/herself with no assistance from a helper. 5-Set-up or Clean-up Assistance-helper sets up or cleans up; patient completes activity. [place] assists only prior to or following the activity. 4-Supervision or Touching Assistance-helper provides verbal cues and/or touching/steadying and/or contact guard assistance as patient completes activity. Assistance may be provided throughout the activity or intermittently. 3-Partial/Moderate Assistance-helper does LESS THAN HALF the effort. [place] lifts, holds or supports trunk or limbs, but provides less than half the effort. 2-Substantial/Maximal Assistance-helper does MORE THAN HALF the effort. [place] lifts or holds trunk or limbs and provides more than half the effort. 6-Zteiytkxr-coaiej does ALL the effort. Patient does none of the effort to complete the activity. Or, the assistance of 2 or more helpers is required for the patient to complete the activity. If activity was not attempted, code reason: 7-Patient Refused. 9-Not Applicable-not attempted and the patient did not perform the activity before the current illness, exacerbation or injury. 10-Not Attempted due to Environmental Limitations-(lack of equipment, weather restraints, etc.). 88-Not Attempted due to Medical Conditions or Safety Concerns. Lying to Sitting/Side of Bed(Q: 2 Sit to Stand (QC): 3 Chair/Btc-dw-Kysje Xfer(QC): 3 Gait Training Does the Patient Walk?: Yes Distance: 150' Walk 10 feet (QC): 3 Walk 50 ft with 2 Turns(QC): 3 Walk 150 ft (QC): 3 Gait Assistive Device: FWW slow, shuffle gait sequence/VC's for body placement in FWW Exercises Seated Therapy Exercises: Ankle pumps, Long arc quads Seated Reps: 15 Assessment Much improved on this date. Increase activity as tolerated by patient. PT Short Term Goals Short Term Goals Time Frame: Feb 09, 2021 Roll Left & Right: 3 Sit to lyin Lying to sitting on side of be: 3 Sit to stand: 3 Chair/lxd-oh-diqum transfer: 3 Toilet transfer: 3 Car transfer: 3 Walk 10 feet: 3 Walk 50 feet with two turns: 3 Walk 150 feet: 3 PT Group Home Goals Group Home Goals PT Group Home Goals Time Frame: Feb 19, 2021 Roll Left & Right (QC): 4 Sit to Lying (QC): 4 Lying-Sitting on Side/Bed(QC): 4 Sit to Stand (QC): 4 Chair/Kzz-na-Qvjea Xfer(QC): 4 Toilet Transfer (QC): 4 Does the Patient Walk: Yes Walk 10 feet (QC): 3 Walk 50ft with 2 Turns (QC): 3 Walk 150 ft (QC): 3 PT Plan Treatment/Plan Treatment Plan: Continue Plan of Care Treatment Plan: Bed Mobility, Education, Functional Activity Stewart, Functional Strength, Gait, Safety, Therapeutic Exercise, Transfers Treatment Duration: Feb 19, 2021 Frequency: 6 times per week Estimated Hrs Per Day: .25 hour per day Time/GCodes Time In: 905 Time Out: 918 Total Billed Treatment Time: 13 Total Billed Treatment 1 visit GT 13 min GHULAM HAMM PT Jan 28, 2021 09:30
[2021-01-28] MEDS ORDERED: TROUGH ORDER-PHARMACY XX NR (10:00)
[2021-01-28 10:39] LABS: BASOPHILS % (AUTO) 0 % (0-10); EOSINOPHILS # (AUTO) 0.1 10^3/uL (0.0-0.3); EOSINOPHILS % (AUTO) 1 % (0-10); HEMATOCRIT 29 % (35-52); HEMOGLOBIN 9.2 g/dL (11.5-16.0); LYMPHOCYTES # (AUTO) 1.3 10^3/uL (1.0-4.0); LYMPHOCYTES % (AUTO) 10 % (12-44); MEAN CORPUSCULAR HEMOGLOBIN 29 pg (25-34); MEAN CORPUSCULAR HGB CONC 31 g/dL (32-36); MEAN CORPUSCULAR VOLUME 93 fL (80-99); MEAN PLATELET VOLUME 8.7 fL (9.0-12.2); MONOCYTES % (AUTO) 7 % (0-12); NEUTROPHILS # (AUTO) 10.6 10^3/uL (1.8-7.8); NEUTROPHILS % (AUTO) 81 % (42-75); PLATELET COUNT 176 10^3/uL (130-400); WHITE BLOOD COUNT 13.1 10^3/uL (4.3-11.0)
[2021-01-28 10:53] LABS: ALBUMIN 3.3 GM/DL (3.2-4.5); POTASSIUM 3.8 MMOL/L (3.6-5.0)
[2021-01-28 10:54] LABS: CALCIUM 8.4 MG/DL (8.5-10.1)
[2021-01-28 10:57] LABS: BILIRUBIN,TOTAL 0.2 MG/DL (0.1-1.0)
[2021-01-28 10:59] LABS: CREATININE SERUM 1.43 MG/DL (0.60-1.30)
--- NOTE | 2021-01-28 11:36 | Occupational Ther Daily Note ---
OT Current Status-Daily Note Subjective Pt upright in recliner, agreeable to OT tx Mental Status/Objective Attachments: IV ADL-Treatment Therapy Code Descriptions/Definitions Functional [place] Measure: 0=Not Assessed/NA 4=Minimal Assistance 1=Total Assistance 5=Supervision or Setup 2=Maximal Assistance 6=Modified [place] 3=Moderate Assistance 7=Complete IndependenceSCALE: Activities may be completed with or without assistive devices. 9-Ndqtmlspwu-sgfzauy completes the activity by him/herself with no assistance from a helper. 5-Set-up or Clean-up Assistance-helper sets up or cleans up; patient completes activity. [place] assists only prior to or following the activity. 4-Supervision or Touching Assistance-helper provides verbal cues and/or touching/steadying and/or contact guard assistance as patient completes activity . Assistance may be provided throughout the activity or intermittently. 3-Partial/Moderate Assistance-helper does LESS THAN HALF the effort. [place] lifts, holds or supports trunk or limbs, but provides less than half the effort. 2-Substantial/Maximal Assistance-helper does MORE THAN HALF the effort. [place] lifts or holds trunk or limbs and provides more than half the effort. 6-Qgkjeieqg-uzthyx does ALL the effort. Patient does none of the effort to complete the activity. Or, the assistance of 2 or more helpers is required for the patient to complete the activity. If activity was not attempted, code reason: 7-Patient Refused. 9-Not Applicable-not attempted and the patient did not perform the activity before the current illness, exacerbation or injury. 10-Not Attempted due to Environmental Limitations-(lack of equipment, weather restraints, etc.). 88-Not Attempted due to Medical Conditions or Safety Concerns. Oral Hygiene (QC): 3 (Pt able to brush teeth, assist from OT to hold basin and wipe up spill.) Other Treatment Pt seated in recliner, initially declines OT as she is in the process of ordering lunch. OT assists pt with deciding what to have and with placing order. Pt then agreeable to ADL tx, she declines UE exercises due to arthritis. Pt completes oral care, OT held basin for pt and cleaned up spills, pt able to brush teeth and bring cup to mouth to rinse. Pt then washed her face with set up assistance. Min A with hair brushing, assist to brush back of hair. Post tx, pt seated in recliner, call light in reach and all needs met. Education OT Patient Education: Correct positioning, Modified ADL techniques, Progress toward Goal/Update tx plan, Purpose of tx/functional activities, Rehab process Teaching Recipient: Patient Teaching Methods: Discussion OT Short Term Goals Short Term Goals Time Frame: Feb 03, 2021 Eatin Oral hygiene: 4 Toileting hygiene: 3 Upper body dressin Lower body dressin Putting on/taking off footwear: 4 OT Care Home Goals Care Home Goals Time Frame: Feb 10, 2021 Eating (QC): 6 Oral Hygiene (QC): 5 Toileting Hygiene (QC): 4 Shower/Bathe Self (QC): 4 Upper Body Dressing (QC): 5 Lower Body Dressing (QC): 4 On/Off Footwear (QC): 4 Additional Goals: 1-Demonstrate ADL Tasks, 2-Verbalize Understanding, 3-ImproveStrength/Stewart 1=Demonstrate adherence to instructed precautions during ADL tasks. 2=Patient will verbalize/demonstrate understanding of assistive devices/modifications for ADL. 3=Patient will improve strength/tolerance for activity to enable patient to perform ADL's. OT Education/Plan Problem List/Assessment Assessment: Decreased Activ Tolerance, Decreased UE Strength, Impaired Funct Balance, Impaired I ADL's, Impaired Self-Care Skills, Restricted Funct UE ROM Discharge Recommendations Plan/Recommendations: Continue POC Treatment Plan/Plan of Care Patient would benefit from OT for education, treatment and training to promote independence in ADL's, mobility, safety and/or upper extremity function for ADL's. Plan of Care: ADL Retraining, Functional Mobility, UE Funct Exercise/Act Treatment Duration: Feb 10, 2021 Frequency: 5 times per week Estimated Hrs Per Day: .25 hour per day Agreement: Yes Rehab Potential: Fair Time/GCodes Start Time: 11:10 Stop Time: 11:21 Total Time Billed (hr/min): 11 Billed Treatment Time 1, ADL ARGELIA BURNETTE OT Jan 28, 2021 11:36
[2021-01-28 12:23] VITALS: BP 169/64
[2021-01-28] MEDS ORDERED: amLODIPine 10 MG (NORVASC) TAB PO NR (13:30)
--- NOTE | 2021-01-28 13:43 | Progress Note - Hospitalist ---
LANIE KONG 01/28/21 1343: Subjective HPI/CC On Admission Time Seen by Provider: 08:51 Subjective/Events-last exam Pt reports that she is doing well this morning. Says that she feels that her hand tremors have improved. Reports that her chronic shoulder pain is slightly worse than normal. Denies any issues with vision loss or temporal pain. States that she had been have trouble sleeping but slept better last night after getting Ativan. Review of Systems General: No Chills, No Other (fever) HEENT: No Head Aches, No Visual Changes Pulmonary: No Dyspnea, No Cough Cardiovascular: No: Chest Pain, Palpitations Gastrointestinal: No: Nausea, Vomiting Musculoskeletal: shoulder pain Neurological: No: Weakness, Numbness, Other (CORTEZ) Focused Exam Lactate Level 01/26/21 16:40: Lactic Acid Level 0.65 Objective Exam Vital Signs Vital Signs Date Time Temp Pulse Resp B/P (MAP) Pulse Ox O2 Delivery O2 Flow Rate FiO2 01/28/21 12:23 37.3 75 20 169/64 (99) 98 Room Air Capillary Refill : Less Than 3 Seconds General Appearance: No Apparent Distress, Obese HEENT: No Photophobia; Other (Improving anisocoria (L>R). EOMI) Respiratory: Lungs Clear, Normal Breath Sounds Cardiovascular: Regular Rate, Rhythm, No Murmur Gastrointestinal: Non Tender, Soft Extremity: Non Tender, No Pedal Edema Neurologic/Psychiatric: Alert, Oriented x3, Other (Drug Coordinator strength 4/5. UE strength 5/5) Results/Procedures Lab Laboratory Tests 01/28/21 10:30 Patient resulted labs reviewed. Imaging: Reviewed Imaging Films, Reviewed Imaging Report Assessment/Plan Assessment and Plan Assess & Plan/Chief Complaint Assessment Acute encephalopathy Meningitis-like sxns stroke-like sxns HSV not detected with PCR. stop acyclovir CSF gram stain rare WBC and no bacteria CSF bacterial culture no growth to date MRI brain showed no acute abnormalities ESR elevated ADOLPH pending Sepsis Acute bacterial sinusitis covered by current course of ceftriaxone parkinson-like sxns hyperlipidemia lower lung atelectasis DVT prophlaxis continue Lovenox hypoglycemia-resolved JOVANY REESE MD 01/28/21 1438: Subjective HPI/CC On Admission Date Seen by Provider: Jan 28, 2021 Time Seen by Provider: 11:40 Assessment/Plan Assessment and Plan Assess & Plan/Chief Complaint Encephalopathy resolved. Unclear etiology. Continue antibiotics for acute bacterial sinusitis. Family requesting discharge home with home health, likely tomorrow. Diagnosis/Problems Diagnosis/Problems (1) Acute encephalopathy Status: Acute (2) Acute bacterial sinusitis Status: Acute (3) Parkinsonian features Status: Acute (4) Hypoglycemia due to type 2 diabetes mellitus Status: Acute (5) Debility Status: Acute Supervisory-Addendum Brief Verification & Attestation Participated in pt care: history, MDM, physical Personally performed: exam, history, MDM, supervision of care Care discussed with: Medical Student Procedures: n/a Results interpretation: Verified all documentation A medical student performed and documented this service in my presence. I reviewed and verified all information documented by the medical student and made modifications to such information, when appropriate. I personally performed the physical exam and medical decision making. LANIE KONG Jan 28, 2021 13:43 JOVANY REESE MD Jan 28, 2021 14:38
--- NOTE | 2021-01-28 15:35 | D/C HH Face to Face Order ---
D/C Face to Face Orders Reconcile Patient Problems Problems Reviewed?: Yes Instructions for Patient Via [facility] cinvolve, Patient Instructions/FollowUp: [address] Arambula Physician to follow Patient: Tyesha Discharge Diet for Home: No Restrictions Patient Data-Allergies,Ht & Wt Patient Allergies: Coded Allergies: Sulfa (Sulfonamide Antibiotics) (Unverified Allergy, Unknown, 09/27/13) levofloxacin (Unverified Allergy, Unknown, 09/27/13) Height (Feet): 5 Height (Inches): 2.00 Weight (Pounds): 212 Weight (Ounces): 9.0 Home Health Need/Face to Face Date of Face to Face: Jan 28, 2021 Clinical Findings: Generalized weakness and fatigue, Muscle weakness, Unsteady gait I have seen Pt btgo-al-mcje: Yes Discharged To: Home Diagnosis/Conditions: Parkinsonism Bipolar Debility Problems/Diagnosis/Condition: (1) Bipolar disorder (2) Parkinsonian features (3) Debility Patient is Homebound due to: Sil fall risk due to instabilty, Muscle weakness Homebound Status Due to the above stated illness, injury or surgical procedure (medical condition or diagnosis) and associated clinical findings, the patient is homebound because of his/her inability to leave home except with aid of a supportive device and/or person AND leaving the home requires a considerable and taxing effort or is medically contraindicated. Pt req the following assistanc: Aid of another person Home Health Nursing Orders Home Health Services Order: Nursing Services, Search Marketing Coordinator-Evaluate & Treat, Physical Therapy-Evaluate & Treat Home Health Infusion Therapy Line Start Date: Jan 25, 2021 Therapy Orders Therapy Orders: OT (must have SN or PT order), Physical Therapy Therapy Specific Orders: Eval assistive deivces, Teach enviro modifications/safety, Gait training, Increase strength/endurance Certify Stmt I certify that this patient is under my care and that I, a nurse practitioner or a physician; a nursing home assistant working with me, had a face to face encounter that - meets the physician face to face encounter requirements with this patient as dated. JOVANY REESE MD Jan 28, 2021 15:35
[2021-01-28 15:46] VITALS: BP 164/66
[2021-01-28 19:19] VITALS: BP 176/69
[2021-01-28] MEDS: ENOXAPARIN 40 MG/0.4 ML (LOVENOX) SYR SC SCH (20:10)
[2021-01-28] MEDS: QUEtiapine 100 MG (SEROquel) TAB IMMEDIATE RELEASE PO SCH (20:12)
[2021-01-28] MEDS: MELATONIN 3 MG TABLET PO SCH (20:13)
[2021-01-28] MEDS: DONEPEZIL 10 MG (ARICEPT) TAB PO SCH (20:13)
[2021-01-28] MEDS: AtorvaSTATin TABLET 10 MG TABLET PO SCH (20:13)
[2021-01-28] MEDS: hydrALAZINE (APESOLINE) 20 MG/ML VIAL IV PRN (20:14)
[2021-01-28 23:59] VITALS: BP 112/56
[2021-01-29] MEDS: inSUlin ASPART (NovoLOG) 1 UNIT/0.01 ML (CHARGE PER UNIT) SC SCH ×3 (00:45→09:14)
[2021-01-29 04:16] VITALS: BP 135/70
[2021-01-29] MEDS: LEVOTHYROXINE 100 MCG (LEVOTHROID) TAB PO SCH (05:43)
[2021-01-29] MEDS: LEVOTHYROXINE 75 MCG (LEVOTHROID) TABLET PO SCH (05:43)
[2021-01-29 08:00] VITALS: BP 163/77
--- NOTE | 2021-01-29 08:29 | Physical Therapy Daily Note ---
PT Daily Note-Current Subjective Patient agrees to PT. Mental Status Attachments: Tatum Catheter Transfers SCALE: Activities may be completed with or without assistive devices. 8-Cbfqawcjxx-xgtfybt completes the activity by him/herself with no assistance from a helper. 5-Set-up or Clean-up Assistance-helper sets up or cleans up; patient completes activity. [place] assists only prior to or following the activity. 4-Supervision or Touching Assistance-helper provides verbal cues and/or touching/steadying and/or contact guard assistance as patient completes activity. Assistance may be provided throughout the activity or intermittently. 3-Partial/Moderate Assistance-helper does LESS THAN HALF the effort. [place] lifts, holds or supports trunk or limbs, but provides less than half the effort. 2-Substantial/Maximal Assistance-helper does MORE THAN HALF the effort. [place] lifts or holds trunk or limbs and provides more than half the effort. 2-Xodviyynv-uhmspg does ALL the effort. Patient does none of the effort to complete the activity. Or, the assistance of 2 or more helpers is required for the patient to complete the activity. If activity was not attempted, code reason: 7-Patient Refused. 9-Not Applicable-not attempted and the patient did not perform the activity before the current illness, exacerbation or injury. 10-Not Attempted due to Environmental Limitations-(lack of equipment, weather restraints, etc.). 88-Not Attempted due to Medical Conditions or Safety Concerns. Lying to Sitting/Side of Bed(Q: 2 Sit to Stand (QC): 4 (CGA) Chair/Kgh-py-Jmqrn Xfer(QC): 4 (CGA) Gait Training Does the Patient Walk?: Yes Distance: 225' Walk 10 feet (QC): 4 (CGA) Walk 50 ft with 2 Turns(QC): 4 (CGA) Walk 150 ft (QC): 4 (CGA) Gait Assistive Device: FWW very slow, shuffle gait sequence with no deviation/CGA for safety Assessment Patient is up in recliner with breakfast in situ. Increase activity as tolerated by patient. PT Short Term Goals Short Term Goals Time Frame: Feb 09, 2021 Roll Left & Right: 3 Sit to lyin Lying to sitting on side of be: 3 Sit to stand: 3 Chair/sfg-ue-vgtrz transfer: 3 Toilet transfer: 3 Car transfer: 3 Walk 10 feet: 3 Walk 50 feet with two turns: 3 Walk 150 feet: 3 PT Shipmaster Goals Residential Goals PT Residential Goals Time Frame: Feb 19, 2021 Roll Left & Right (QC): 4 Sit to Lying (QC): 4 Lying-Sitting on Side/Bed(QC): 4 Sit to Stand (QC): 4 Chair/Aab-mh-Tlkwl Xfer(QC): 4 Toilet Transfer (QC): 4 Does the Patient Walk: Yes Walk 10 feet (QC): 3 Walk 50ft with 2 Turns (QC): 3 Walk 150 ft (QC): 3 PT Plan Treatment/Plan Treatment Plan: Continue Plan of Care Treatment Plan: Bed Mobility, Education, Functional Activity Stewart, Functional Strength, Gait, Safety, Therapeutic Exercise, Transfers Treatment Duration: Feb 19, 2021 Frequency: 6 times per week Estimated Hrs Per Day: .25 hour per day Time/GCodes Time In: 730 Time Out: 744 Total Billed Treatment Time: 14 Total Billed Treatment 1 visit FA 14 min GHULAM HAMM PT Jan 29, 2021 08:29
[2021-01-29] MEDS ORDERED: amLODIPine 10 MG (NORVASC) TAB PO SCH (09:00)
[2021-01-29] MEDS: ALLOPURINOL 100 MG (ZYLOPRIM) TAB PO SCH (09:12)
[2021-01-29] MEDS: PANTOPRAZOLE 40 MG (PROTONIX) TAB PO SCH (09:12)
[2021-01-29] MEDS: BACLOFEN 10 MG (LIORESAL) TAB PO SCH (09:12)
[2021-01-29] MEDS: eZETimibe 10 MG (ZETIA) TABLET PO SCH (09:12)
[2021-01-29] MEDS: fluCOnazole (DIFLUCAN) 100 MG TAB PO SCH (09:13)
[2021-01-29] MEDS: SERTRALINE 100 MG (ZOLOFT) TAB PO SCH (09:13)
[2021-01-29] MEDS: MEMANTINE 10 MG (NAMENDA) TABLET PO SCH (09:13)
[2021-01-29] MEDS: clonazePAM 1 MG (KlonoPIN) TAB PO SCH (09:13)
[2021-01-29] MEDS: cefTRIAXone 2,000 MG in WATER (STERILE) FOR INJECTION 20 ML IV SCH (09:14)
[2021-01-29] MEDS: LORazepam INJ 2 MG/ML (ATIVAN) VIAL IVP SCH (09:14)
[2021-01-29] MEDS ORDERED: AMLO-251 PO (10:38)
[2021-01-29] MEDS ORDERED: CARV12.53 PO (10:38)
[2021-01-29] MEDS ORDERED: CEFD300C3 PO (10:39)
[2021-01-29 12:10] VITALS: BP 146/68
--- NOTE | 2021-01-29 13:43 | Discharge Summary ---
Discharge Summary Hospital Course Problems/Dx: (1) Acute encephalopathy Status: Acute (2) Acute bacterial sinusitis Status: Acute (3) Parkinsonian features Status: Acute (4) Hypoglycemia due to type 2 diabetes mellitus Status: Acute (5) Debility Status: Acute Hospital Course Date of Admission: Jan 25, 2021 at 13:00 Admission Diagnosis : Stroke-like symptoms Family Physician/Provider: Elliot Arambula MD Date of Discharge: 01/29/21 Discharge Diagnosis: Acute metabolic encephalopathy, acute bacterial sinusitis, parkinsonian features, acute kidney injury superimposed on chronic kidney disease 3b, hypoglycemia Hospital Course: Franca Flowers is a 80-year-old female who presented with stroke-like symptoms. She reportedly had facial droop and slurred speech at the time of the incident which had resolved by the time of my examination. She underwent a CT head which showed no acute stroke. She was found to be hypoglycemic. She is on sulfonylurea for type 2 diabetes. This was held and her blood sugars improved. Her symptoms worsened and she became lethargic. She also developed a fever. There was concern for meningitis and a lumbar puncture was performed. She was started on IV antibiotics and steroids for possible meningitis. There is no evidence of meningitis on the CSF studies. Her CSF culture had no growth. She underwent an MRI brain which showed no acute abnormalities to explain her symptoms. There was evidence of severe sinus disease. She was continued on antibiotics for acute bacterial sinusitis. Her symptoms resolved the following morning. The rest of her encephalopathy work-up was negative. She does have a history of bipolar disorder and there was concern that this could have been playing a role. She worked with physical and Occupational Therapy. She was set up with home health care on discharge. Her sulfonylurea was stopped. She had symptoms concerning for Parkinson's disease. She should follow-up with her primary care physician and neurologist for further evaluation. She was discharged home in stable condition. Labs and Pending Lab Test: Laboratory Tests 01/28/21 15:30: Glucometer 123H 01/28/21 20:08: Glucometer 175H 01/28/21 23:26: Glucometer 133H 01/29/21 03:32: Glucometer 89 01/29/21 08:47: Glucometer 136H Microbiology 01/26/21 Blood Culture - Preliminary, Resulted No growth 01/26/21 Gram Stain - Final, Complete 01/26/21 CSF Culture - Final, Complete No growth Home Meds Active Cefdinir 300 Mg Capsule 300 Mg PO BID 7 Days Amlodipine Besylate 10 Mg Tablet 10 Mg PO DAILY 30 Days Carvedilol 12.5 Mg Tablet 12.5 Mg PO BID 30 Days Reported Tylenol Pm Ex-Strength Caplet (Acetaminophen/Diphenhydramine) 1 Each Tablet 2 Each PO HS Balanced B-50 Complex Tablet (Vitamin B Complex/Folic Acid) 50 Mcg Tablet 50 Mcg PO DAILY Vitamin D3 (Cholecalciferol (Vitamin D3)) 50 Mcg Capsule 50 Mcg PO DAILY Melatonin 3 Mg Tablet 3 Mg PO HS Tylenol 8 Hour (Acetaminophen) 650 Mg Tablet.er 650 Mg PO QID PRN ALTERNATES TYLENOL AND TRAMADOL Gas Relief (Simethicone) 125 Mg Tab.chew 125-250 Mg PO TID PRN Aspirin EC (Aspirin) 81 Mg Tablet.dr 81 Mg PO DAILY Preservision Areds Tablet (Vit A/Vit C/Vit E/Zinc/Copper) 1 Each Tablet 1 Each PO DAILY Pantoprazole Sodium 40 Mg Tablet.dr 40 Mg PO DAILY Ezetimibe 10 Mg Tablet 10 Mg PO DAILY Tradjenta (Linagliptin) 5 Mg Tablet 5 Mg PO DAILY Salagen (Pilocarpine) 5 Mg Tab 5 Mg PO QID Memantine HCl 10 Mg Tablet 10 Mg PO 0800,1700 Allopurinol 100 Mg Tablet 100 Mg PO DAILY Atorvastatin Calcium 10 Mg Tablet 10 Mg PO DAILY Sertraline HCl 100 Mg Tablet 200 Mg PO DAILY TAKES 2 (100MG) TABS Bumetanide 2 Mg Tablet 2 Mg PO DAILY Clonazepam 1 Mg Tablet 1 Mg PO 0800,1400,2200 Donepezil HCl 10 Mg Tablet 10 Mg PO HS Tramadol HCl 50 Mg Tablet 50 Mg PO QID ALTERNATES TYLENOL AND TRAMADOL Levothyroxine Sodium 175 Mcg Tablet 175 Mcg PO DAILY Baclofen 10 Mg Tablet 10 Mg PO 0800,1400,1600,2200 Quetiapine Fumarate 50 Mg Tablet 150 Mg PO HS TAKES 3 (50MG) TABS Assessment/Pt Instructions Take medications as prescribed. Follow-up with your primary care physician. Return with worsening symptoms. Discharge Planning: <30 minutes discharge planning Discharge Instructions Discharge Diet: No Restrictions Activity as Tolerated: Yes Discharge Physical Examination Vital Signs Vital Signs Date Time Temp Pulse Resp B/P (MAP) Pulse Ox O2 Delivery O2 Flow Rate FiO2 01/29/21 13:16 01/29/21 12:10 36.4 68 18 98 Room Air General Appearance: No Apparent Distress, Obese Respiratory: Lungs Clear, Normal Breath Sounds, No Respiratory Distress Cardiovascular: Regular Rate, Rhythm, No Edema, No Murmur Gastrointestinal: Normal Bowel Sounds, Non Tender, Soft Extremity: Normal Inspection, Non Tender, Pedal Edema Skin: Normal Color, Warm/Dry Neurologic/Psychiatric: Alert, Oriented x3, Motor Weakness, Other (Flat affect) Allergies: Coded Allergies: Sulfa (Sulfonamide Antibiotics) (Unverified Allergy, Unknown, 09/27/13) levofloxacin (Unverified Allergy, Unknown, 09/27/13) Discharge Summary Date of Admission Jan 25, 2021 at 13:00 Date of Discharge Discharge Date: Jan 29, 2021 Discharge Time: 13:35 Admission Diagnosis Stroke like symptoms Discharge Diagnosis Acute metabolic encephalopathy, acute bacterial sinusitis, parkinsonian features (1) Acute encephalopathy Status: Acute (2) Acute bacterial sinusitis Status: Acute (3) Parkinsonian features Status: Acute (4) Hypoglycemia due to type 2 diabetes mellitus Status: Acute (5) Debility Status: Acute (6) Acute kidney injury superimposed on CKD Status: Acute JOVANY REESE MD Jan 29, 2021 13:42
--- NOTE | 2021-02-01 00:27 | Physician Query Clarification ---
PQ-Uncertain Diagnosis Admission/Discharge Admission Date: Jan 25, 2021 at 13:00 Discharge Date: Jan 29, 2021 at 13:30 JOVANY Tompkins MD The medical record reflects the following clinical scenario: History/Risk Factors: 80 y/o female patient preseted stroke like symptoms, found to have hypoglycemic and acute bacterial sinusitis, sepsis documented in medical record. Hand P, 01/25: Stroke like symptoms likely due to hypoglycemia, parkinson features, acute kidney injury superimposed on CKD. Progress notes, 01/26: Acute encephalopathy, hypoglycemia resolved, stroke like symptoms, sepsis. Discharge summary, 01/29: Acute metabolic encephalopathy, acute bacterial sinusitis, parkinsonian features, acute kidney injury superimposed on CKD. Clinical Findings: WBC-13.1,pulse -98, temp- 38.6, CT head and MRI negative for stroke. Treatment: IV antibiotics. Question: Is sepsis a clinically valid diagnosis? Sepsis was documented in the progress notes, 01/26 with no further documentation in the medical record. Please document a response in Progress Note or Discharge Summary. 1. Yes, clinically valid, condition resolved. 2. No, condition ruled out. 3. Other, with explanation of clinical findings. 4. Undetermined, no explanation for clinical findings. PHYSICIAN RESPONSE Diagnosis clinically valid: Yes, Conditon resolved Please remember a lack of response to the above will prompt a phone page by [facility]oding staff. In responding to this query, please exercise your independent professional judgment. The purpose of this communication is to more accurately reflect the complexity of your patients condition. The fact that a question is asked does not imply that any particular answer is desired or expected. Thank you for your timely response to this clarification. Requestors name: [ ] Phone # [ ] THIS PHYSICIAN QUERY FORM IS A PERMANENT PART OF THE MEDICAL RECORD JOURDAN SONI Feb 01, 2021 00:27 JOVANY REESE MD Feb 02, 2021 20:08
== END 2021-01-29 13:16 | disposition home health service (06) ==
LOC: EDUNIT# 07:46 → ER 07:49 → 4TH 13:00 → UNDOADMIN 13:00 → 4TH 13:32 → UNDODISIN 01-29 13:30
PROVIDERS: ADMIT Internal Medicine; ATTEND Internal Medicine
DX: G93.40 Encephalopathy, unspecified (principal); J01.80 Other acute sinusitis; G93.41 Metabolic encephalopathy; N17.9 Acute kidney failure, unspecified; J98.11 Atelectasis; E11.649 Type 2 diabetes mellitus with hypoglycemia without coma; F41.9 Anxiety disorder, unspecified; W19.XXXA Unspecified fall, initial encounter; G20 Parkinson's disease; I12.9 Hypertensive chronic kidney disease with stage 1 through stage 4 chronic kidney disease, or unspecified chronic kidney disease; E78.5 Hyperlipidemia, unspecified; F02.80 Dementia in other diseases classified elsewhere, unspecified severity, without behavioral disturbance, psychotic disturbance, mood disturbance, and anxiety; N18.32 Chronic kidney disease, stage 3b; F31.9 Bipolar disorder, unspecified; R53.81 Other malaise; Z79.82 Long term (current) use of aspirin; Z79.899 Other long term (current) drug therapy; Z88.2 Allergy status to sulfonamides; Z88.1 Allergy status to other antibiotic agents
CPT/HCPCS: 51702; 70450; 70553; 71045 ×3; 72125; 80048 ×2; 80053 ×2; 80202; 80306; 81000; 82550; 82945; 82947 ×5; 83036; 83605; 83615; 84145 ×2; 84157; 84439; 84443; 84481; 85025 ×4; 85652; 86038; 86039; 86141; 87040; 87070; 87205; 87529; 87798; 89051; 93005; 97116; 97162; 97167; 97530; 97535; 99284; G0378; G0480; 36415; 80320; 87254